=== PATIENT | female | born 1945 | race Caucasian/White ===

== ENCOUNTER 2020-07-01 15:04 | Inpatient (IN) | payer MEDICARE ==
[~2020-07-01] VITALS: Ht 160 cm; Wt 110.7 kg
--- NOTE | ~2020-07-01 | HEMODYNAMI ---
PATIENT:PATT TOVAR MEDICAL RECORD: [id number] : 47 LOCATION:D.MS [place] ADMISSION DATE: 07/01/20 Generatedon:07/01/202016:23 Patient name: PATT TOVAR Patient #: [id number] SSN: : 1945 Date of study: Page: Of Hemodynamic Procedure Report Patient Data Patient Demographics First Name: PATT Gender: Female Last Name: GUY : 1945 Patient #: [id number] Age: 75 year(s) Race: Unknown Additional ID: [id number] Admission Admission Data Admission Date: 07/01/2020 Admission Time: 15:04 Room #: D.2223 Procedure Procedure Types Cath Procedure Peripheral Cath Diagnostic Procedure Microbiology Analyst Peripheral Procedures IVC Filter Procedure Description Procedure Staff Name Function Norma Billings MD Performing Physician Aicha Dyer RT Monitor Kashmir CISNEROS RN Nurse WELLINGTON TERRAZAS RT Scrub Hemodynamics Rest Pre Cath Intra NCS Post Cath Procedure Log Time Note 16:16:28 Use device set IR Diagnostic 16:16:29 Bag Decanter () opened to sterile field. 16:16:30 Sterile Angiographic Pack opened to sterile field. 16:16:30 Tegaderm 4 x 4 (1626W) opened to sterile field. 16:16:42 MICROPUNCTURE 4FR Cook ([id number]) opened to sterile field. 16:16:43 DOC .035 wire ([id number]) opened to sterile field. Device Usage Item Name Manufacture Quantity Catalog Hospital Part Current Minima l Lot# / Number Charge Number Stock Stock Serial# Code Bag Decanter Microtek 1 [id number] [id number] 5 () Medical Inc. Sterile Cardinal 1 [id number] 756360 625415 5 Angiographic Health Pack Tegaderm 4 x 3M 1 1626W 609611 886350 974373 5 4 (1626W) MICROPUNCTURE Salient Pharmaceuticals Medical 1 [id number] 112197 675828 991091 5 4FR Cook ([id number]) DOC .035 [facility] 1 [id number] 995825 360050 5 ([id number]) Signature Audit Delta Stage Time Signature Unsigned Intra-Procedure 07/01/2020 WELLINGTON TERRAZAS RT 4:23:18 PM (R) [id number] [place] [address]
--- NOTE | ~2020-07-01 | EC ---
PATIENT:PATT TOVAR DATE OF SERVICE: 07/01/20 SEX: F MEDICAL RECORD: [id number] DATE OF : [birth year] LOCATION:D.MS [facility] AGE OF PATIENT: 75 ADMISSION DATE: 07/01/20 REFERRING PHYSICIAN: INTERPRETING PHYSICIAN: ADOLFO VILLAR MD ECHOCARDIOGRAM REPORT ECHO CHARGES 4 ECHO COMPLETE Date: 07/03/20 CLINICAL DIAGNOSIS: PTE ECHOCARDIOGRAPHIC MEASUREMENTS (adult normal given) AC root (d.<3.7cm) 3.1 cm LV Septum d (<1.2 cm> 1.8 cm Valve Excursion 1.6 cm LV Septum (systole) 2.2 cm Left Atria (s.<4.0cm> 4.2 cm LVPW d(<1.2cm) 1.3 cm RV (d.<2.3cm) 3.1 cm LVPW (sytole) 1.4 cm LV diastole(<5.6CM) 4.7 cm MV E-F(>70mm/sec) cm LV systole 3.3 cm LVOT Diameter 1.6 cm MV exc.(>10mm) cm Est.ejection fraction (50-75%) % DOPPLER: LVIT cm/sec A 126 cm/sec E 91 cm/sec LA cm/sec RVSP 17.7 mmHg LVOT 155 cm/sec AOP1/2T m/s Asc. Ao 189 cm/sec RVOT 60 cm/sec RA cm/sec PA 66 cm/sec AV Gradient Peak 14.3 mmHg AV Mean 8.6 mmHg AV Area 1.5 cm MV Gradient Peak 6.6 mmHg MV Mean 2.6 mmHg MV Area cm COMMENTS: Manufacturing Scheduler: Madina OLMSTEAD Body Worker: Natali Villar TAPE# PACS Pericardial Effusion N DATE OF SERVICE: PROCEDURE: Transthoracic echocardiogram. FINDINGS: 1. The left ventricle shows moderate concentric left ventricular hypertrophy, ejection fraction 60%. 2. Left atrium is moderately dilated. 3. The aortic valve is sclerotic without stenosis. 4. Mitral valve has trace mitral regurgitation with mitral annular ECHOCARDIOGRAM REPORT [id number] PATT TOVAR calcification. 5. Tricuspid valve normal shape, structure, and function. 6. The right ventricle has more right ventricular hypertrophy with mild enlargement. 7. Right atrium is normal size, shape, structure, and function. 8. There is diastolic dysfunction. 9. Pulmonic valve is normal. 10. There is mild pericardial effusion. TRANSINT:[id number] Voice Confirmation ID: [id number] DOCUMENT ID: [id number] ADOLFO VILLAR MD CC: [id number] DICTATION DATE: 07/04/20 1103 HOSPITAL CNA: 07/04/20 1555 ADM IN [facility] [address] [place] [address]
--- NOTE | ~2020-07-01 | HEMODYNAMI ---
PATIENT:PATT TOVAR MEDICAL RECORD: [id number] : 47 LOCATION:D.MS [facility]2223 ADMISSION DATE: 07/01/20 Generatedon:07/02/202014:03 Patient name: PATT TOVAR Patient #: [id number] SSN: : 1945 Date of study: 07/02/2020 Page: Of Hemodynamic Procedure Report Patient Data Patient Demographics Procedure consent was obtained First Name: PATT Gender: Female Last Name: GUY : 1945 Patient #: [id number] Age: 75 year(s) Race: Unknown Additional ID: [id number] Contact details [address]: [address] [place] [address] State: [place] City: [place] Zip code: [address] Past Medical History Allergies Allergen Reaction Date Comments Reported Penicillins 07/02/2020 Sulfa drugs 07/02/2020 Admission Admission Data Admission Date: 07/01/2020 Admission Time: 15:04 Room #: D.2223 Height (in.): 63 BSA: 2.1 (m2) Height (cm.): 160.02 BMI: 43.22 (kg/m2) Weight (lbs.): 244 Weight (kg.): 110.68 Procedure Procedure Types Cath Procedure Peripheral Cath Diagnostic Procedure Welder Helper Peripheral Procedures Venography Extremity Left Lower Ext. Venagram Procedure Description Procedure Date Procedure Date: 07/02/2020 Procedure Start Time: 12:38 Procedure Staff Name Function Girish Barboza MD Performing Physician Aicha Dyer RT Buttonholer Kashmir CISNEROS RN Nurse WELLINGTON TERRAZAS RT Scrub Procedure Data Cath Procedure Fluoroscopy Diagnostic fluoroscopy Total fluoroscopy Time: 8.1 time: 8.1 min min Diagnostic fluoroscopy Total fluoroscopy dose: 805 dose: 805 mGy mGy Contrast Material Contrast Material Type Amount (ml) Isovue 300 90 Procedure Medications Medication Administration Route Dosage Benadryl I.V. 50 mg Fentanyl I.V. 50 mcg Versed I.V. 1 mg Fentanyl I.V. 25 mcg Versed I.V. 0.5 mg Fentanyl I.V. 25 mcg Versed I.V. 0.5 mg Heparin Bolus I.V. 5000 units Fentanyl I.V. 25 mcg Versed I.V. 0.5 mg Versed I.V. 0.5 mg Fentanyl I.V. 25 mcg Fentanyl I.V. 25 mcg Versed I.V. 0.5 mg Hemodynamics Rest BSA: 2.1 (m2) O2 Consumption: Estimated: 214 (ml/min) O2 Consumption indexed: Es timated:101.9 (ml/min/m) Heart Rate: 98 (bpm) Snapshots Pre Cath Intra NCS Post Cath Vital Signs Time Heart Resp SPO2 etCO2 NIBP (mmHg) Rhythm Pain Sedation Rate (ipm) (%) (mmHg) Status Level (bpm) 12:12:50 97 20 100 17.2 114/73(86) NSR 0 (11) 9(A) , No pain 12:17:00 97 21 100 14.9 106/65(82) NSR 0 (11) 9(A) , No pain 12:21:08 96 20 100 12.7 105/67(86) NSR 0 (11) 9(A) , No pain 12:25:13 96 16 100 12.7 104/69(87) NSR 0 (11) 9(A) , No pain 12:30:04 95 22 100 20.9 123/79(91) NSR 0 (11) 9(A) , No pain 12:34:14 95 15 100 10.4 124/78(98) NSR 0 (11) 9(A) , No pain 12:38:28 96 19 100 11.2 132/75(95) NSR 0 (11) 9(A) , No pain 12:42:38 97 14 100 2.9 107/67(91) NSR 0 (11) 8(A) , No pain 12:46:46 99 14 99 4.4 110/72(84) NSR 0 (11) 8(A) , No pain 12:50:54 99 15 98 1.4 114/71(87) NSR 0 (11) 8(A) , No pain 12:55:03 96 14 98 2.9 109/70(81) NSR 0 (11) 8(A) , No pain 12:59:11 96 18 98 5.2 117/73(95) NSR 0 (11) 9(A) , No pain 13:03:23 96 13 99 8.9 108/75(89) NSR 0 (11) 8(A) , No pain 13:07:35 94 14 98 22.4 112/66(86) NSR 0 (11) 8(A) , No pain 13:11:45 96 24 96 16.4 115/74(91) NSR 0 (11) 9(A) , No pain 13:16:01 95 13 96 29.1 123/63(100) NSR 0 (11) 9(A) , No pain 13:20:15 97 17 96 29.1 124/85(99) NSR 0 (11) 8(A) , No pain 13:24:27 94 13 92 14.9 138/84(108) NSR 0 (11) 8(A) , No pain 13:28:37 94 20 93 29.9 140/90(109) NSR 0 (11) 8(A) , No pain 13:32:57 94 12 95 23.1 120/83(91) NSR 0 (11) 8(A) , No pain 13:37:07 95 15 96 31.4 135/90(113) NSR 0 (11) 8(A) , No pain 13:41:21 96 16 94 28.4 137/88(106) NSR 0 (11) 8(A) , No pain 13:45:37 98 16 94 16.4 100/73(90) NSR 0 (11) 8(A) , No pain 13:49:41 96 20 96 18.7 118/78(92) NSR 0 (11) 8(A) , No pain 13:53:50 95 33 96 29.1 129/77(101) NSR 0 (11) 8(A) , No pain 13:58:05 92 11 96 26.9 124/77(110) NSR 0 (11) 8(A) , No pain 14:02:10 98 14 32.9 134/88(103) NSR 0 (11) 8(A) , No pain Medications Time Medication Route Dose Verified Delivered Reason Notes Effe ctiveness by by 12:28:25 Benadryl I.V. 50 mg Girish Minner used for Tamra vora MD, RN 12:39:00 Fentanyl I.V. 50 Girish Minner for sedation mcg Tamra CISNEROS MD, RN 12:39:12 Versed I.V. 1 mg Girish Minner for sedation Tamra CISNEROS MD, RN 12:47:42 Fentanyl I.V. 25 Girish Minner for sedation mcg Tamra CISNEROS MD, RN 12:47:48 Versed I.V. 0.5 Girish Minner for sedation mg Tamra CISNEROS MD, RN 13:02:03 Fentanyl I.V. 25 Girish Minner for sedation mcg Tamra CISNEROS MD, RN 13:02:12 Versed I.V. 0.5 Girish Minner for sedation mg Tamra CISNEROS MD, RN 13:06:10 Heparin I.V. 5000 Girish Minner for Bolus units Tamra verde MD, RN 13:10:04 Fentanyl I.V. 25 Girish Minner for sedation mcg Tamra CISNEROS MD, RN 13:10:52 Versed I.V. 0.5 Girish Minner for sedation mg Tamra CISNEROS MD, RN 13:19:57 Fentanyl I.V. 25 Girish Minner for sedation mcg Tamra CISNEROS MD, RN 13:20:02 Versed I.V. 0.5 Girish Minner for sedation mg Tamra CISNEROS MD, RN 13:45:53 Fentanyl I.V. 25 Girish Minner for sedation mcg Tamra CISNEROS MD, RN 13:45:59 Versed I.V. 0.5 Girish Minner for sedation mg Tamra CISNEROS MD early years teacher Log Time Note 11:31:31 Patient Height : 63 inches 11:31:35 Patient Weight : 244 lbs 11:31:59 Use device set IR Diagnostic 12:09:48 BENTSON 145cm wire ([id number]) opened to sterile field. 12:09:49 Micropuncture VSI 4FR kit opened to sterile field. 12:09:50 Tegaderm 4 x 4 (1626W) opened to sterile field. 12:09:53 Sterile Angiographic Pack opened to sterile field. 12:09:53 Bag Decanter (2002S) opened to sterile field. 12:10:05 Time tracking: Regular hours (M-F 7:00 - 5:00) 12:10:22 Plan of Care:Hemodynamics will remain stable., Cardiac rhythm will remain stable., Comfort level will be maintained., Respiratory function will remain adequate., Patient/ family verbilizes understanding of procedure., Procedure tolerated without complication., Recovers from procedure without complications.. 12:11:34 Patient received from Med/Surg to IR Alert and oriented. Tansferred to table in Prone position. 12:11:42 Signed procedure consent form obtained from guardian. 12:11:46 ECG and BP/O2 sat monitors applied to patient. 12:11:47 Vital chart was started 12:11:49 Baseline sample Acquired. 12:11:50 Full Disclosure recording started 12:11:51 - 12:11:55 H&P Date Dictated: 07/02/2020 Within 30 days and on chart.. 12:11:57 Pre-procedure instructions explained to patient. 12:11:58 Pre-op teaching completed and patient verbalized understanding. 12:12:01 Family unavailable. 12:12:04 Patient NPO since Midnight. 12:12:17 Patient allergic to Penicillins 12:13:07 Patient allergic to Sulfa drugs 12:13:13 Is the patient allergic to Iodine/contrast media? No. 12:13:15 Is patient on blood thinner?Yes 12:13:21 ACC The patient was administered the following blood thiners within the last 24 hours: ACCHeparin 12:13:43 Patient diabetic? Yes. 12:13:47 If diabetic: On Metformin? Yes 12:14:14 If on Metformin: Last Dose? 06/30/2020 12:14:17 - 12:14:20 ----Pre-sedation anethsthesia assessment.---- 12:14:23 Previous problem with sedation/anesthesia? No ? 12:14:29 Snore? Yes 12:14:31 Sleep apnea? No 12:14:35 Deviated septum? No 12:14:39 Opens mouth fully? Yes 12:14:41 Sticks out tongue? Yes 12:14:47 Airway obstruction? No ? 12:14:51 Dentures? No ? 12:15:06 Popliteal region area was prepped with chlora-prep and draped in steril e fashion 12:15:19 Fire Safety Assessment: A--An alcohol-based skin anteseptic being used preoperatively., C--Open oxygen or nitrous oxide is being used. 12:22:57 2) 60-89 Mildly reduced kidney function, and other findings (as for stage 1) point to kidney disease. 12:23:33 Maximum allowable contrast dose (3.7 X eGFR X 0.75)180 ml. 12:28:25 Benadryl 50 mg I.V. was administered by Kashmir CISNEROS RN; used for procedure; Verbal order read back and verified. 12:33:05 Cordis 5Fr BRITE TIP 11cm sheath opened to sterile field. 12:37:32 Physician arrived 12:37:33 --------ALL STOP TIME OUT------ 12:37:34 Final Timeout: patient, procedure, and site verified with staff and physician. All members of the team are in agreement. 12:38:06 Procedure started. 12:38:15 Local anesthetic to left popliteal vein with Lidocaine 1% by Girish Barboza MD.INITIAL ACCESS ONLY 12:39:00 Fentanyl 50 mcg I.V. was administered by Kashmir CISNEROS RN; for sedation; Verbal order read back and verified. 12:39:12 Versed 1 mg I.V. was administered by Kashmir CISNEROS RN; for sedation; Verbal order read back and verified. 12:47:42 Fentanyl 25 mcg I.V. was administered by Kashmir CISNEROS RN; for sedation; Verbal order read back and verified. 12:47:48 Versed 0.5 mg I.V. was administered by Kashmir CISNEROS RN; for sedation; Verbal order read back and verified. 13:02:03 Fentanyl 25 mcg I.V. was administered by Kashmir CISNEROS RN; for sedation; Verbal order read back and verified. 13:02:12 Versed 0.5 mg I.V. was administered by Kashmir CISNEROS RN; for sedation; Verbal order read back and verified. 13:06:10 Heparin Bolus 5000 units I.V. was administered by Kashmir CISNEROS RN; fo r anticoagulation; Verbal order read back and verified. 13:08:37 CXI Catheter 90cm (H18637) opened to sterile field. 13:08:47 ROADRUNNER .035 145 glide wire (G60248) opened to sterile field. 13:10:04 Fentanyl 25 mcg I.V. was administered by Kashmir CISNEROS RN; for sedation; Verbal order read back and verified. 13:10:52 Versed 0.5 mg I.V. was administered by Kashmir CISNEROS RN; for sedation; Verbal order read back and verified. 13:19:57 Fentanyl 25 mcg I.V. was administered by Kashmir CISNEROS RN; for sedation; Verbal order read back and verified. 13:20:02 Versed 0.5 mg I.V. was administered by Kashmir CISNEROS RN; for sedation; Verbal order read back and verified. 13:30:52 INFLATOR BasixTOUCH (BJ2811) opened to sterile field. 13:31:[address] Tarik (333919) opened to sterile field. 13:31:32 AMPLATZ Super stiff Straight 260cm wire ([id number]) opened to sterile field. 13:31:48 Zelante 8Fr Angiojet catheter opened to sterile field. 13:32:15 Inflate balloon Inflation number: 1 A Evercross 12 x 40 x 135 ([id number]) was prepped and advanced across the Undefined1 , then inflated . 13:42:32 Inflate balloon Inflation number: 1 A ATLAS 14 x 4 x 75CM balloon ([id number]) was prepped and advanced across the Undefined2 , then inflated. 13:45:53 Fentanyl 25 mcg I.V. was administered by Kashmir CISNEROS RN; for sedation; Verbal order read back and verified. 13:45:59 Versed 0.5 mg I.V. was administered by Kashmir CISNEROS RN; for sedation; Verbal order read back and verified. 13:54:05 Procedure ended.(Physican Out) 13:55:27 Fluoroscopy time 08.10 minutes. 13:55:31 Fluoroscopy dose: 805 mGy 13:55:31 Flurop Dose total: 805 13:55:36 Contrast amount:Isovue 300 90ml. 13:56:00 MYNX CUSTOMER FACILITIES SUPERVISOR 6FR/7FR ([id number]) opened to sterile field. 13:56:13 Procedure and supply charges have been captured, reviewed, submitted an d are correct. 13:58:23 Report given to Med/Surg. 14:03:37 Vital chart was stopped Intervention Summary Intervention Notes Time ActionType Lesion and Equipment Used Action# Pressure Duration Attributes 13:32:15 Inflate Undefined1 Evercross 12 x 1 0 00:00 balloon 40 x 135 ([id number]) 13:42:32 Inflate Undefined2 ATLAS 14 x 4 x 1 0 00:00 balloon 75CM balloon ([id number]) Device Usage Item Name Manufacture Quantity Catalog Hospital Part Current Min imal Lot# / Number Charge Number Stock Stock Serial# Code SANA 145cm Cook Medical 1 [id number] [id number] 5 wire ([id number]) Micropuncture VSI VASCULAR 1 7266V 580798 921066 5 VSI 4FR kit SOLUTIONS Tegaderm 4 x 4 3M 1 1626W 893393 881882 557249 5 (1626W) Sterile Cardinal 1 [id number] 749683 930766 5 Angiographic Health Pack Bag Decanter Microtek 1 2001S 889756 58173 604078 5 (2001S) Medical Inc. Cordis 5Fr Cardinal 1 [id number] 107215 261372 5 BRITE TIP 11cm Health sheath CXI Catheter Cook Medical 1 B25126 344484 051108 350804 5 90cm (A86463) ROADRUNNER .035 Cook Medical 1 R59833 057372 758788 645099 5 145 glide wire (D65046) INFLATOR Merit 1 SX4352 978881 320939 841008 5 [id number] PriceAdvice (QI4027) SHEATH 8FR [facility] Tarik 1 655220 953198 089134 365239 5 Tarik (173305) AMPLATZ Super Erwin 1 [id number] 673348 81905 535890 5 stiff Straight Scientific 260cm wire ([id number]) Zelante 8Fr Erwin 1 315217-451 176698 414737 552246 5 Angiojet Scientific catheter Evercross 12 x Medtronic 1 [id number] 067436 650611 127279 5 40 x 135 ([id number]) ATLAS 14 x 4 x Bard 1 LG49114 634292 323464 507243 5 75CM balloon ([id number]) MYNX CUSTOMER FACILITIES SUPERVISOR Access 1 [id number] 713716 168569 5 6FR/7FR Closure (RB7681) Signature Audit [place] Stage Time Signature Unsigned Intra-Procedure 07/02/2020 Aicha Dyer 2:03:31 PM RT(R) [facility] [address] [place] [address]
[2020-07-01 15:36] LABS: BASOPHILS 0.1 % (0-2); EOSINOPHILS 0.6 % (0-7); HEMATOCRIT 32.4 % (36.0-48.0); HEMOGLOBIN 9.8 g/dL (12-16); IMMATURE GRANULOCYTES 0.4 % (0-5); LYMPHOCYTES 7.9 % (15-50); MCH 23.9 pg (26.0-34.0); MCHC 30.2 g/dL (31.0-37.0); MEAN PLATELET VOLUME 9.5 fL (7.4-10.4); MONOCYTES 6.6 % (2-11); NEUTROPHILS 84.4 % (40-80); PLATELET COUNT 328 10x3/uL (130-400); RDW 18.3 % (11.5-14.5); WBC 13.5 10x3/uL (4.8-10.8)
[2020-07-01 15:50] LABS: INR 2.18 (0.85-1.17); PROTIME 23.9 SECONDS (11.6-15.0)
[2020-07-01 15:51] LABS: APTT 35.5 SECONDS (22.8-39.4)
[2020-07-01 15:59] LABS: ANION GAP 10.5 mmol/L (8-16); CALCIUM 8.8 mg/dL (8.5-10.1); CARBON DIOXIDE 24.9 mmol/L (21.0-32.0); CREATININE - SERUM 1.1 mg/dL (0.6-1.3); POTASSIUM - SERUM 4.4 mmol/L (3.5-5.1)
[2020-07-01 16:05] LABS: ALBUMIN 2.2 g/dL (3.4-5.0); BILIRUBIN - TOTAL 0.42 mg/dL (0.2-1.3)
[2020-07-01 17:04] VITALS: BP 108/58; BMI 43.3
--- NOTE | 2020-07-01 17:26 | NUR ---
I have reviewed this patient and I concur with the Shift Assessment completed by the Licensed Practical Nurse today this shift.
--- NOTE | 2020-07-01 19:30 | NUR ---
LEFT PEDAL PULSE PRESENT WITH DOPPLER
[2020-07-01 20:00] VITALS: BP 128/57
--- NOTE | 2020-07-01 20:00 | NUR ---
PT LYING IN BED WITHOUT DISTRESS, ORIENTED TO SELF ONLY. IV RIGHT UPPER ARM INFUSING HEPARIN DRIP AT 13ML/HR, PTT REDRAW AT 0000. LEFT LEG RED AND SWOLLEN. BLISTERS TO LEFT FOOT. LARGE BLISTER ON TOP. SMALL BLISTERS AROUND ANKLE. PT INCONTINENT OF URINE. DENIES NEEDS. DOES NOT ANSWER MANY QUESTIONS, JUST STARES BLANKLY. CL IN REACH, WILL CTM
--- NOTE | 2020-07-01 22:00 | NUR ---
DAMIR MEDINA CAN CLOSING MACHINE TENDER AT BEDSIDE ASSESSING PT LEFT LEG AND BLISTERS
--- NOTE | 2020-07-01 23:00 | NUR ---
PT GIVEN HIBICLENS BATH, LINENS CHANGED. 16F BHATIA CATH PLACED, 10ML STERILE WATER INTO BALLOON. STAT LOCK PLACED TO RIGHT THIGH
[2020-07-02] VITALS (13 sets, daily range): BP systolic 97–166; BP diastolic 46–85; Ht 160 cm; Wt 110.7 kg
--- NOTE | 2020-07-02 05:00 | NUR ---
PT YELLING OUT HELP. ENTERED PT ROOM AND ASKED WHAT SHE NEEDED, PT STATES SHE IS HURTING. WHEN ASKED IF IT IS HER LEG HURTING, SHE STATES YES. GAVE MORPHINE ORDERED. PT THEN BEGAN SAYING SHE FELT SICK TO HER STOMACH. GAVE ZOFRAN. PT WENT BACK TO SLEEP SOON AFTER. WILL CTM
[2020-07-02 06:57] LABS: ALBUMIN 2.3 g/dL (3.4-5.0); ANION GAP 13.9 mmol/L (8-16); BILIRUBIN - TOTAL 0.6 mg/dL (0.2-1.3); CALCIUM 9.6 mg/dL (8.5-10.1); CARBON DIOXIDE 24.5 mmol/L (21.0-32.0); CREATININE - SERUM 0.9 mg/dL (0.6-1.3); POTASSIUM - SERUM 4.4 mmol/L (3.5-5.1); PROTEIN - SERUM 6.9 g/dL (6.4-8.2)
[2020-07-02 07:10] LABS: PROTIME 19.5 SECONDS (11.6-15.0)
[2020-07-02 07:11] LABS: APTT 76.5 SECONDS (22.8-39.4)
[2020-07-02 07:16] LABS: INR 1.67 (0.85-1.17)
[2020-07-02 07:50] LABS: BASOPHILS 0.1 % (0-2); HEMATOCRIT 32.3 % (36.0-48.0); HEMOGLOBIN 9.5 g/dL (12-16); IMMATURE GRANULOCYTES 0.4 % (0-5); LYMPHOCYTES 9.7 % (15-50); MCH 23.8 pg (26.0-34.0); MCHC 29.4 g/dL (31.0-37.0); MCV 80.8 fL (80.0-100.0); MEAN PLATELET VOLUME 10.2 fL (7.4-10.4); MONOCYTES 7.8 % (2-11); PLATELET COUNT 393 10x3/uL (130-400); RDW 18.3 % (11.5-14.5); WBC 14.8 10x3/uL (4.8-10.8)
--- NOTE | 2020-07-02 09:42 | NUR ---
ASSESSMENT PER FLOW SHEET. PATIENT IS WITHOUT DISTRESS. DOES NOT SPEAK,BUT A FEW WORDS. SHE ALSO HAS A BLANK LOOKING GAZE WHEN SPOKEN TO.NPO FOR PROCEDURE.
[2020-07-02 12:22] LABS: LDH 849 U/L (81-234)
--- NOTE | 2020-07-02 15:25 | NUR ---
PROCEDURE COMPLETED AND PATIENT HAS BEEN BACK IN ROOM. SHE IS WITHOUT SIGNS OF DISTRESS. SITE FROM VENOGRAM POST LEFT KNEE WITHOUT SWELLING OR BLEEDING.VSS SEE GRAPHICS. PULSES HEARD VIA DOPPLER TO LLE. MONITOR
--- NOTE | 2020-07-02 18:27 | NUR ---
STILL WITHOUT NEEDS. AWAKENS INT.RLE STILL WITHOUT BLEEDING OR HEMATOMA AT PROCEDURE SITE. PULSES VIA DOPPLER
--- NOTE | 2020-07-02 20:00 | NUR ---
PT LYING IN BED SLEEPING WITHOUT DISTRESS, AWAKENS TO VERBAL STIMULI. ORIENTED TO SELF ONLY. DENIES NEEDS AT THIS TIME. BHATIA IN PLACE. 02 2L/NC. BANG ON. CL IN REACH, WILL CTM
[2020-07-03] VITALS: BP 91/42
--- NOTE | 2020-07-03 01:00 | NUR ---
PT HIT CALL LIGHT AND CALLED OUT OF HELP. ENTERED PT ROOM AND SHE WAS ASKING FOR FOOD AND WATER. GAVE PT A FEW SIPS OF WATER. LEFT ROOM TO SEE ABOUT HER NPO STATUS AND BY THE TIME I CAME BACK TO ROOM SHE WAS ASLEEP. WILL RIKKIM
[2020-07-03 04:00] VITALS: BP 104/47
[2020-07-03 07:32] LABS: HEMATOCRIT 29.2 % (36.0-48.0); HEMOGLOBIN 8.5 g/dL (12-16); MCH 23.9 pg (26.0-34.0); MCHC 29.1 g/dL (31.0-37.0); MCV 82.3 fL (80.0-100.0); MEAN PLATELET VOLUME 9.2 fL (7.4-10.4); PLATELET COUNT 335 10x3/uL (130-400); RBC 3.55 10x6/uL (4.00-5.40); RDW 18.6 % (11.5-14.5); WBC 11.9 10x3/uL (4.8-10.8)
[2020-07-03 08:03] LABS: APTT 61.4 SECONDS (22.8-39.4); PROTIME 15.8 SECONDS (11.6-15.0)
[2020-07-03 08:12] LABS: HAPTOGLOBIN 410 mg/dL (42-346)
[2020-07-03 08:15] VITALS: BP 99/23
--- NOTE | 2020-07-03 08:24 | NUR ---
RSTING IN BED, NO DISTRESS NOTED, EYES CLOSED, HEPARIN INFUSING AT 13, CONT TO MONITOR
[2020-07-03 08:36] LABS: INR 1.27 (0.85-1.17)
[2020-07-03 09:02] LABS: EOSINOPHILS 1 % (0-7); LYMPHOCYTES 5 % (15-50); MONOCYTES 2 % (2-11); NEUTROPHILS 92 % (40-80); PLATELET ESTIMATE NORMAL
[2020-07-03 09:16] LABS: ANION GAP 10.6 mmol/L (8-16); BILIRUBIN - TOTAL 0.72 mg/dL (0.2-1.3); CALCIUM 8.9 mg/dL (8.5-10.1); CARBON DIOXIDE 26.5 mmol/L (21.0-32.0); CREATININE - SERUM 0.8 mg/dL (0.6-1.3); POTASSIUM - SERUM 4.1 mmol/L (3.5-5.1)
[2020-07-03 13:47] VITALS: BP 98/33
[2020-07-03 14:09] LABS: ALPHA FETOPROTEIN -(TUMOR MRK) 1.9 ng/mL (0.0-8.3)
[2020-07-03 17:37] VITALS: BP 104/41
[2020-07-03 20:00] VITALS: BP 99/45
[2020-07-04 00:10] VITALS: BP 100/51
[2020-07-04 01:21] LABS: BASOPHILS 0.2 % (0-2); EOSINOPHILS 2.7 % (0-7); HEMATOCRIT 27.5 % (36.0-48.0); HEMOGLOBIN 7.9 g/dL (12-16); IMMATURE GRANULOCYTES 1.7 % (0-5); LYMPHOCYTES 11.1 % (15-50); MCH 23.8 pg (26.0-34.0); MCHC 28.7 g/dL (31.0-37.0); MCV 82.8 fL (80.0-100.0); MEAN PLATELET VOLUME 9.5 fL (7.4-10.4); MONOCYTES 8.1 % (2-11); NEUTROPHILS 76.2 % (40-80); PLATELET COUNT 349 10x3/uL (130-400); RBC 3.32 10x6/uL (4.00-5.40); RDW 18.9 % (11.5-14.5); WBC 11.7 10x3/uL (4.8-10.8)
[2020-07-04 01:23] LABS: INR 1.17 (0.85-1.17); PROTIME 14.9 SECONDS (11.6-15.0)
[2020-07-04 01:27] LABS: ALBUMIN 1.9 g/dL (3.4-5.0); ANION GAP 8.6 mmol/L (8-16); BILIRUBIN - TOTAL 0.45 mg/dL (0.2-1.3); CALCIUM 8.2 mg/dL (8.5-10.1); CARBON DIOXIDE 29.1 mmol/L (21.0-32.0); CREATININE - SERUM 0.8 mg/dL (0.6-1.3); POTASSIUM - SERUM 3.7 mmol/L (3.5-5.1); PROTEIN - SERUM 5.7 g/dL (6.4-8.2)
[2020-07-04 01:45] LABS: APTT 62.1 SECONDS (22.8-39.4)
[2020-07-04 04:30] VITALS: BP 103/50
--- NOTE | 2020-07-04 08:48 | NUR ---
ASSESSMENT PER FLOW SHEET. PATIENT IS WITHOUT DISTRESS.AWAKE AND EATING THIS AM 100% OF BREAKFAST,FEEDING SELF.REQUEST FOR BLACK COFFEE.FALL PREVENTION IN PLACE WITH BANG
[2020-07-04 09:49] VITALS: BP 97/43
[2020-07-04 12:15] VITALS: BP 114/50
--- NOTE | 2020-07-04 12:30 | NUR ---
WAITING ON LUNCH. PATIENT IS WITHOUT DISTRESS. STILL WAITING ON LABS FOR HEPARIN DRIP.
--- NOTE | 2020-07-04 19:00 | NUR ---
BEDSIDE REPORT RECEIVED AND CARE OF PT ASSUMED. PT LYING ON RIGHT SIDE WITH EYES CLOSED. IV TO RIGHT FA PATENT WITH HEPARIN INFUSING AT 18 ML/HR. BHATIA CATHETER DRAINING TO GRAVITY WITH YELLOW URINE IN COLLECTION BAG. O2 IN USE VIA NC AT 4L. LEFT FOOT WITH REDNESS AND LARGE BLISTERS. WILL MONITOR FOR NEEDS.
--- NOTE | 2020-07-04 19:46 | NUR ---
PT REQUESTING PAIN MED...MORPHINE FELL OFF JAN. CALLED AND RECEIVED ORDER FOR NORCO 5 PO Q6PRN.
--- NOTE | 2020-07-04 20:15 | NUR ---
HS MEDICATIONS GIVEN TO INCLUDE NORCO PO PER REQUEST FOR PAIN IN LEG. FSBS 144 THIS CHECK REQUIRING NO COVERAGE PER SLIDING SCALE. WILL CONTINUE TO MONITOR FOR NEEDS.
[2020-07-04 20:26] VITALS: BP 106/44
[2020-07-05 00:16] VITALS: BP 130/61
[2020-07-05 03:06] LABS: PROTEIN S - FREE 92 % (57-157); PROTEIN S - FREE 93 % (57-157); PROTEIN S - FUNCTIONAL 45 % (63-140); PROTEIN S - TOTAL 111 % (60-150); PROTEIN S - TOTAL 170 % (60-150)
[2020-07-05 04:30] VITALS: BP 114/44
[2020-07-05 05:23] LABS: INR 1.08 (0.85-1.17)
[2020-07-05 05:31] LABS: APTT 64.7 SECONDS (22.8-39.4)
[2020-07-05 05:34] LABS: HEMATOCRIT 29.8 % (36.0-48.0); HEMOGLOBIN 8.7 g/dL (12-16); MCH 24.4 pg (26.0-34.0); MCHC 29.2 g/dL (31.0-37.0); MCV 83.5 fL (80.0-100.0); MEAN PLATELET VOLUME 9.6 fL (7.4-10.4); PLATELET COUNT 397 10x3/uL (130-400); RBC 3.57 10x6/uL (4.00-5.40); RDW 19.5 % (11.5-14.5); WBC 11.9 10x3/uL (4.8-10.8)
--- NOTE | 2020-07-05 07:10 | NUR ---
REC'D IN BED AWAKE AND ALERT. RESP EVEN AND UNLABORED WITH NO DISTRESS NOTED CAN EXPRESS NEEDS AND WANTS. NO C/O VOICED. ASSESSMENT COMPLETED. C/L IN REACH AT BEDSIDE.
[2020-07-05 08:51] LABS: ALBUMIN 2.1 g/dL (3.4-5.0); ANION GAP 13.6 mmol/L (8-16); BILIRUBIN - TOTAL 0.33 mg/dL (0.2-1.3); CALCIUM 8.2 mg/dL (8.5-10.1); CARBON DIOXIDE 27.6 mmol/L (21.0-32.0); CREATININE - SERUM 0.8 mg/dL (0.6-1.3); POTASSIUM - SERUM 4.2 mmol/L (3.5-5.1); PROTEIN - SERUM 5.7 g/dL (6.4-8.2)
[2020-07-05 08:54] VITALS: BP 134/71
--- NOTE | 2020-07-05 09:59 | NUR ---
I have reviewed this patient and I concur with the Shift Assessment completed by the Licensed Practical Nurse today this shift.
[2020-07-05 10:33] LABS: LYMPHOCYTES 12 % (15-50); MONOCYTES 12 % (2-11); NEUTROPHILS 73 % (40-80); PLATELET ESTIMATE INCREASED
[2020-07-05 10:34] LABS: ANISOCYTOSIS OCC; HYPOCHROMASIA OCC; ROULEAUX OCC
[2020-07-05 13:05] VITALS: BP 128/55
--- NOTE | 2020-07-05 14:17 | NUR ---
Nutrition follow-up: RDN visited pt during breakfast. Pt reports good appetite with po intake 100% of last 4 meals. Pt denies chewing or swallowing issues and reports filling out his menus and enjoying the food. Labs reviewed WT: 243# RDN following.
[2020-07-05 15:11] LABS: ACLA - IGG AB <9 GPL U/mL (0-14); ACLA - IGM AB <9 MPL U/mL (0-12); BETA-2 MICROGLOBULIN 3.2 mg/L (0.6-2.4)
[2020-07-05 17:37] VITALS: BP 135/59
[2020-07-05 22:03] VITALS: BP 100/57
--- NOTE | 2020-07-05 22:45 | NUR ---
INCREASED HEPARIN DRIP PER PROTOCOL FROM 17 UNITS TO 18 UNITS.
[2020-07-06] VITALS: BP 128/58
[2020-07-06 04:00] VITALS: BP 127/63
[2020-07-06 06:22] LABS: ALBUMIN 2.1 g/dL (3.4-5.0); ANION GAP 9.6 mmol/L (8-16); BILIRUBIN - TOTAL 0.33 mg/dL (0.2-1.3); CALCIUM 7.8 mg/dL (8.5-10.1); CARBON DIOXIDE 30.4 mmol/L (21.0-32.0); CREATININE - SERUM 0.8 mg/dL (0.6-1.3); PROTEIN - SERUM 5.6 g/dL (6.4-8.2)
[2020-07-06 06:24] LABS: INR 1.06 (0.85-1.17); PROTIME 13.7 SECONDS (11.6-15.0)
[2020-07-06 06:28] LABS: APTT 30.9 SECONDS (22.8-39.4)
[2020-07-06 07:31] LABS: BASOPHILS 0.1 % (0-2); EOSINOPHILS 2.5 % (0-7); HEMATOCRIT 30.2 % (36.0-48.0); HEMOGLOBIN 8.7 g/dL (12-16); IMMATURE GRANULOCYTES 1.9 % (0-5); LYMPHOCYTES 10.4 % (15-50); MCHC 28.8 g/dL (31.0-37.0); MCV 83.4 fL (80.0-100.0); MEAN PLATELET VOLUME 9.7 fL (7.4-10.4); MONOCYTES 9.8 % (2-11); NEUTROPHILS 75.3 % (40-80); PLATELET COUNT 373 10x3/uL (130-400); RBC 3.62 10x6/uL (4.00-5.40); WBC 13.7 10x3/uL (4.8-10.8)
[2020-07-06 09:12] LABS: HEXAGONAL PHASE PHOS 5 sec (0-11); LUPUS - INTERPRETATION Comment: (()); LUPUS - dRVVT 151.2 sec (0.0-47.0); LUPUS - dRVVT CONFIRMATION 1.2 ratio (0.8-1.2); PTT-LA MIX 52.5 sec (0.0-48.9)
[2020-07-06 11:03] VITALS: BP 142/65
--- NOTE | 2020-07-06 12:16 | NUR ---
BOLUS OF HEPARIN OF 3000 UNITS GIVEN AT THIS TIME AND DRIP INCREASED BY 200 WHICH IS NOW RUNNING AT 22 PER PROTOCOL. C/L IN REACH AT BEDSIDE.
[2020-07-06 15:00] VITALS: BP 106/52
[2020-07-06 15:15] VITALS: BP 120/56
--- NOTE | 2020-07-06 15:37 | NUR ---
I have reviewed this patient and I concur with the Shift Assessment completed by the Licensed Practical Nurse today this shift.
--- NOTE | 2020-07-06 18:49 | NUR ---
REC'D IN WALKING ROUNDS EASILY TO AROUSED WHEN NAME IS CALLED. RESP EVEN AND UNLABORED WITH NO DISTRESS NOTED. CAN EXPRESS NEEDS AND WANTS. BLISTERS NOTED TO LEFT FOOT THE ONE TOP WITH NOTED WEEPING. ASSESSMENT COMPLETED. C/L IN REACH AT BEDSIDE.
[2020-07-06 20:00] VITALS: BP 116/56
[2020-07-07] VITALS: BP 141/66
--- NOTE | 2020-07-07 00:11 | NUR ---
I have reviewed this patient and I concur with the Shift Assessment completed by the Licensed Practical Nurse today this shift.
[2020-07-07 04:00] VITALS: BP 142/64
[2020-07-07 05:26] LABS: HEMATOCRIT 30.1 % (36.0-48.0); HEMOGLOBIN 8.6 g/dL (12-16); MCH 23.7 pg (26.0-34.0); MCHC 28.6 g/dL (31.0-37.0); MCV 82.9 fL (80.0-100.0); MEAN PLATELET VOLUME 9.7 fL (7.4-10.4); RBC 3.63 10x6/uL (4.00-5.40); RDW 20.2 % (11.5-14.5); WBC 14.8 10x3/uL (4.8-10.8)
--- NOTE | 2020-07-07 07:00 | NUR ---
REC'D IN WALKING ROUND IN BED WITH EYES CLOSED EASILY TO AROUSED WHEN NAME IS CALLED. RESP EVEN AND UNLABORED WITH NO DISTRESS NOTED. CAN EXPRESS NEEDS AND WANTS.NO C/O NOTED OR VOICED. WAS INFORMED BY BUGGY MAN NURSE THAT LAB HAD YET TO COME AND DRAW PT MORNING LAB FOR HER APTT NIGHT NURSE STATED THAT LAB STATES THAT THEY ARE RUNNING BEHIND AND THAT THEY WOULD GET TO IT. ASSESSMENT COMPLETED. C/L IN REACH AT BEDSIDE.
--- NOTE | 2020-07-07 07:10 | NUR ---
REC'D CALL BACK FROM LAB AT THIS TIME WITH RESULTS OF APTT WHICH WAS 169.3. DRIP WAS THEN PLACED ON HOLD FOR 60 MINUTES PER PROTOCOL AND DECREASE DOWN BY 300 UNITS AFTER HOLD ENDED.
[2020-07-07 07:15] LABS: INR 1.26 (0.85-1.17); PROTIME 15.7 SECONDS (11.6-15.0)
[2020-07-07 07:34] LABS: APTT 169.3 SECONDS (22.8-39.4)
--- NOTE | 2020-07-07 07:40 | NUR ---
RECEIVED CALL FROM PILAR IN LAB PT APPT IS 169.3. RELAYED MESSAGE TO PT NURSE. CONTINUE WITH PLAN OF CARE
[2020-07-07 09:58] VITALS: BP 129/56
--- NOTE | 2020-07-07 10:37 | NUR ---
REC'D CALL FROM IR TO HOLD HEPARIN AT THIS TIME. HEPARIN PLACED ON HOLD.
--- NOTE | 2020-07-07 12:46 | NUR ---
LAB WAS REDRAWN AT THIS TIME WITH RESULTS OF 72.4.
--- NOTE | 2020-07-07 13:00 | NUR ---
DRIP WAS RESTARTED AT 20 UNITS PER PROTOCOL AFTER REC'D CALL THAT PT WAS NOT GOING TO BE ABLE TO GET PROCEDURE DONE ON TODAY. PT MADE AWARE. C/L IN REACH AT BEDSIDE.
[2020-07-07 13:04] LABS: INR 1.18 (0.85-1.17)
[2020-07-07 13:06] LABS: APTT 72.4 SECONDS (22.8-39.4)
--- NOTE | 2020-07-07 13:18 | NUR ---
LUNCH TRAY WAS REORDER AT THIS TIME AND PT WILL BE NPO AFTER MIDNIGHT ON TONIGHT FOR PROCEDURE ON TOMORROW.
--- NOTE | 2020-07-07 13:30 | NUR ---
AT THIS TIME DRIP RATE WAS TURN DOWN TO 17 VIA IR NURSE.
[2020-07-07 13:33] VITALS: BP 112/50
--- NOTE | 2020-07-07 14:26 | MORECARE ---
CASE MANAGEMENT DISCHARGE SUMMARY PATIENT: PATT TOVAR UNIT: [id number] ADM DATE: 07/01/20 AGE: 75 : 46 SEX: F ROOM/BED: D.2223 AUTHOR: FRANKIE PÉREZ PHYSICIAN: REFERRING PHYSICIAN: RALPH GODINEZ MD DATE OF SERVICE: 07/07/20 Discharge Plan Patient Name: PATT TOVAR Facility: [facility]:[place] : 1945 Planned Disposition: Anticipated Discharge Date: Discharge Date: Expected LOS: Initial Reviewer: [email or web address] Initial Review Date: 07/01/2020 Generated: 07/07/20 3:26 pm Patient Name: PATT TOVAR Page [phone] at 1426 All edits/amendments must be made on the electronic document DICTATION DATE: 07/07/20 142 SILO TENDER: OSMANY 07/07/20 142 RPT#: [id number] DC DATE: STATUS: ADM IN [facility] [address] [place] [address] END OF REPORT
[2020-07-07 18:25] VITALS: BP 120/66
--- NOTE | 2020-07-07 18:30 | NUR ---
NO CHANGES NOTED TO DRIP PER LABS OF 89.5. WITH NEXT LAB IN AM PER PROTOCOL.
--- NOTE | 2020-07-07 18:45 | NUR ---
I have reviewed this patient and I concur with the Shift Assessment completed by the Licensed Practical Nurse today this shift.
[2020-07-07 20:00] VITALS: BP 107/40
[2020-07-08] VITALS (12 sets, daily range): BP systolic 85–198; BP diastolic 37–68
[2020-07-08 04:35] LABS: HEMOGLOBIN 7.9 g/dL (12-16); LYMPHOCYTES 12.1 % (15-50); MCH 24.5 pg (26.0-34.0); MCHC 29.3 g/dL (31.0-37.0); MCV 83.9 fL (80.0-100.0); MEAN PLATELET VOLUME 9.4 fL (7.4-10.4); NEUTROPHILS 78.8 % (40-80); PLATELET COUNT 379 10x3/uL (130-400); RBC 3.22 10x6/uL (4.00-5.40); RDW 20.3 % (11.5-14.5); WBC 14.4 10x3/uL (4.8-10.8)
[2020-07-08 04:44] LABS: INR 1.1 (0.85-1.17); PROTIME 14.2 SECONDS (11.6-15.0)
[2020-07-08 04:47] LABS: ANION GAP 5.6 mmol/L (8-16); CALCIUM 7.9 mg/dL (8.5-10.1); CREATININE - SERUM 0.8 mg/dL (0.6-1.3); MAGNESIUM - SERUM 1.8 mg/dL (1.8-2.4); POTASSIUM - SERUM 3.6 mmol/L (3.5-5.1)
--- NOTE | 2020-07-08 06:00 | NUR ---
CALLED LAB FOR APTT RESULTS. IT SHOWS IT HAS STILL NOT BEEN RECIEVED. LAB STATED THEY WILL FIX IT AND RESULT IT. WILL FALLOW UP.
--- NOTE | 2020-07-08 06:18 | NUR ---
I have reviewed this patient and I concur with the Shift Assessment completed by the Licensed Practical Nurse today this shift.
--- NOTE | 2020-07-08 06:45 | NUR ---
STILL WAITING ON APTT TO RESULT NOW SHOWS PENDING. CALLED LAB TWICE.
--- NOTE | 2020-07-08 06:56 | NUR ---
APTT JUST RESULTED BACK. 147.5. HEPARIN ON HOLD FOR 30MIN AND DOWN BY 2ML/HR.
--- NOTE | 2020-07-08 07:27 | NUR ---
HEPRIN DRIP RESUMED AT 0728. ALREADY ADJUSTED BY [facility]. WILL PLACE REDRAW APTT.
--- NOTE | 2020-07-08 10:15 | NUR ---
HEPRIN DRIP TURNED OFF PER IR. PADMINI DUENAS NOTIFIED ME.
--- NOTE | 2020-07-08 11:26 | NUR ---
OT NOTE: PT REQUIRES MODERATE ENCOURAGEMENT TO PARTICIPATE. MOD VERBAL AND PHYSICAL CUES FOR BED MOB INCLUDING ROLLING AND SUPINE TO SIT. ABLE TO WASH FACE, HANDS WITH WASHCLOTH AND SET UP. PERFORMED UE/LE EXS WHILE SITTING ON EOB. SIT TO STAND WITH WALKER AND MOD ASSIST X 2..ATTEMPTED TO TAKE SEVERAL SIDE STEPS BUT REQIRED 2 ATTEMPTS BECAUSE PT HAD TO SIT DOWN. PRACTICED BED MOB TO GET BACK TO BED WITH TRAPEZE AND CONSTANT VERBAL CUEING.. ENCOURAGING PT TO DO MUCH ON HER OWN POSSIBLE..MUCH BETTER TODAY VS YESTERDAY. FABIÁN MARINO, OTR/L [phone]
--- NOTE | 2020-07-08 11:36 | NUR ---
PT LAYING ON RIGHT SIDE. NO NEEDS AT THIS TIME. CL IN REACH. WCTM
--- NOTE | 2020-07-08 16:04 | NUR ---
PT TAKEN WITH FLYNN RN FOR IR LIVER BIOPSY
[2020-07-08 16:09] LABS: FACTOR II DNA ANALYSIS Negative (())
--- NOTE | 2020-07-08 18:33 | NUR ---
TOLD TO RESTART HEPRIN DRIP PER PROTOCOL AT 1900 PM BY PADMINI BANERJEE FROM IR.
--- NOTE | 2020-07-08 19:15 | NUR ---
RESTARTED HEPRIN DRIP.
--- NOTE | 2020-07-08 19:30 | NUR ---
PT IN BED, AAO X 3, RESP EVEN AND UNLABORED. NO DISTRESS NOTED, CL IN REACH, SR UP X 2.
--- NOTE | 2020-07-09 00:35 | NUR ---
I have reviewed this patient and I concur with the Shift Assessment completed by the Licensed Practical Nurse today this shift.
[2020-07-09 03:49] VITALS: BP 134/52
[2020-07-09 07:11] LABS: BASOPHILS 0.1 % (0-2); EOSINOPHILS 1.5 % (0-7); HEMATOCRIT 28.7 % (36.0-48.0); HEMOGLOBIN 8.3 g/dL (12-16); IMMATURE GRANULOCYTES 0.7 % (0-5); LYMPHOCYTES 8.3 % (15-50); MCH 23.6 pg (26.0-34.0); MCHC 28.9 g/dL (31.0-37.0); MEAN PLATELET VOLUME 9.6 fL (7.4-10.4); MONOCYTES 6.8 % (2-11); NEUTROPHILS 82.6 % (40-80); PLATELET COUNT 334 10x3/uL (130-400); RBC 3.51 10x6/uL (4.00-5.40); RDW 20.7 % (11.5-14.5); WBC 15.7 10x3/uL (4.8-10.8)
[2020-07-09 07:12] LABS: MCV 81.8 fL (80.0-100.0)
[2020-07-09 07:20] LABS: CALC OSMOLALITY 278 mosm/kg (275-300); CARBON DIOXIDE 32.5 mmol/L (21.0-32.0); CHLORIDE - SERUM 103 mmol/L (98-107); CREATININE - SERUM 0.6 mg/dL (0.6-1.3); MAGNESIUM - SERUM 1.7 mg/dL (1.8-2.4); POTASSIUM - SERUM 3.8 mmol/L (3.5-5.1); SODIUM 139 mmol/L (136-145); UREA NITROGEN 10 mg/dL (7-18); eGFR NON AFRICAN AMERICAN > 90 mL/min (90-120)
[2020-07-09 07:26] LABS: GLUCOSE 138 mg/dL (74-106)
[2020-07-09 07:30] LABS: INR 1.14 (0.85-1.17); PROTIME 14.6 SECONDS (11.6-15.0)
--- NOTE | 2020-07-09 07:43 | NUR ---
PATIENT SLEEPING. LUNGS DIMINISHED BILATERALLY. HEART SOUNDS S1 AND S2 HEARD IN ALL BARBER. BOWEL SOUNDS ACTIVE X 4. IV TO RFA PATENT WITHOUT REDNESS. DENIES NEEDS. BED LOW. BED ALARM ON. CALL BARRIOS AND PERSONAL ITESM IN REACH. WILL CONTINUE TO MONITOR.
[2020-07-09 09:16] VITALS: BP 116/46
--- NOTE | 2020-07-09 09:21 | NUR ---
APTT 107.6. HEPARINE DRIP DECREASED FROM 17ML/HR TO 15ML/HR PER PROTOCOL. REDRAW PLACED FOR 1500.
--- NOTE | 2020-07-09 12:26 | NUR ---
NUTRITION FOLLOW UP: COMMENTS: Patient on the phone during visit this am. Patient has been eating well for the past 5 meals. No new weight since 07/02. Patient has been experiencing high POC glucose levels. DIET: Regular Diet PO INTAKE: 95% avg for last 5 meals WEIGHT: 244 lbs on 07/02 BM: x 1 on 07/08 SIG LABS: POC Glucose- 318, 161, 261, 316, 362 SIG MEDS: Humalog, Mag Ox, Zofran, Heparin, Protonix RECOMMENDATIONS: -Recommend changing diet to Diabetic to help with blood glucose labs RD to continue to follow and monitor patient DHS
--- NOTE | 2020-07-09 12:27 | MORECARE ---
CASE MANAGEMENT DISCHARGE SUMMARY PATIENT: PATT TOVAR UNIT: [id number] ADM DATE: 07/01/20 AGE: 75 : 46 SEX: F ROOM/BED: D.2223 AUTHOR: FRANKIE PÉREZ PHYSICIAN: REFERRING PHYSICIAN: RALPH GODINEZ MD DATE OF SERVICE: 07/09/20 Discharge Plan Patient Name: PATT TOVAR Facility: [facility]:[place] : 1945 Planned Disposition: Anticipated Discharge Date: Discharge Date: Expected LOS: Initial Reviewer: [email or web address] Initial Review Date: 07/01/2020 Generated: 07/09/20 1:26 pm Last DP export: 07/07/20 1:27 p Patient Name: PATT TOVAR Page [phone] at 1227 All edits/amendments must be made on the electronic document DICTATION DATE: 07/09/20 1226 TRAIN PLANNER: OSMANY 07/09/20 1226 RPT#: [id number] DC DATE: STATUS: ADM IN [facility] [address] [place] [address] END OF REPORT
--- NOTE | 2020-07-09 12:34 | MORECARE ---
CASE MANAGEMENT DISCHARGE SUMMARY PATIENT: PATT TOVAR UNIT: [id number] ADM DATE: 07/01/20 AGE: 75 : 46 SEX: F ROOM/BED: D.2223 AUTHOR: ELISA,DOC PHYSICIAN: REFERRING PHYSICIAN: RALPH GODINEZ MD DATE OF SERVICE: 07/09/20 Discharge Plan Patient Name: PATT TOVAR Facility: [facility]:[place] : 1945 Planned Disposition: Anticipated Discharge Date: Discharge Date: Expected LOS: Initial Reviewer: [email or web address] Initial Review Date: 07/01/2020 Generated: 07/09/20 1:33 pm Comments DCP- Discharge Planning Updated by [email or web address]: Herlinda العلي on 07/09/20 11:[address] Patient Name: PATT TOVAR Admission Status: Elective Accout number: [id number] Admission Date: 07-01-2020 : 1945 Admission Diagnosis:ACUTE EMBOLISM AND THOMBOS UNSP DEEP VN UNSP LOWER EXTR Attending: RALPH GODINEZ Current LOS: 8 Anticipated DC Date: Planned Disposition: Primary Insurance: MEDICARE A & B Discharge Planning Comments: CM met with patient at bedside after explaining CM role and obtaining verbal consent. CM discussed availability / needs of home health, REHAB and medical equipment. PATIENT UNSURE OF NEEDS AT THIS TIME. WAITING RESULTS OF LIVER BIOPSY. SHE NORMALLY LIVES AT HOME WITH HER DAUGHTER. MAY NEED HH OR REHAB AT TIME OF DC. CM WILL FOLLOW AND ASSIST NEEDED. Front Office Associate: Herlinda العلي DCPIA - Discharge Planning Initial Assessment Updated by [email or web address]: Herlinda العلي on 07/09/20 12:29 pm * Is the patient Alert and Oriented? Yes * Preadmission Environment Home with Family * ADLs Independent * Other Equipment CANE, WALKER * List name and contact numbers for known caregivers / representatives who currently or will assist patient after discharge: DAUGHTER * Community resources currently utilized None * Additional services required to return to the preadmission environment? No * Can the patient safely return to the preadmission environment? Yes * Has this patient been hospitalized within the prior 30 days at any hospital? No Last DP export: 07/09/20 11:27 a Patient Name: PATT TOVAR Page [id number] at 1234 All edits/amendments must be made on the electronic document DICTATION DATE: 07/09/20 1233 CRYPTOLOGIC LINGUIST: OSMANY 07/09/20 1233 RPT#: [id number] DC DATE: STATUS: ADM IN [facility] [address] [place] [address] END OF REPORT
[2020-07-09 12:57] VITALS: BP 109/56
--- NOTE | 2020-07-09 13:40 | NUR ---
OT NOTE: SIT TO STAND WITH MAX ASSIST; ABLE TO TAKE 2 STEPS WITH MAX ASSIST; BED MOB WITH MOD ASSIST; PERFORMED WELL WITH UE/LE EXS X 10 REPS X 2 SETS; SIMPLE GROOMING TASKS WITH SET UP; MAX ASSIST FOR TOILET HYGIENE; MIN ASSIST WITH SIT TO SUPINE. FABIÁN MARINO, OTR/L [phone]
--- NOTE | 2020-07-09 16:03 | NUR ---
NO CHANGE MADE TO HEPARIN DRIP PER ORDER D/T APTT 79.8.
--- NOTE | 2020-07-09 16:47 | NUR ---
OT NOTE: PT COMPLETED SIDE ROLLING WITH MOD/MIN A. PT COMPLETED POSITIONING WITH MIN A . PT COMPLETED FACE HYGIENE WITH SETUP. PT COMPLETED UE AROM EXS TOLERATED. [phone] THANK YOU,CARLYLE GUERRERO
[2020-07-09 17:06] VITALS: BP 100/41
--- NOTE | 2020-07-09 19:00 | NUR ---
BEDSIDE REPORT RECEIVED AND CARE OF PT ASSUMED. PT LYING IN SUPINE POSITION WITH EYES CLOSED. IV TO RIGHT FA PATENT WITH HEPARIN INFUSING AT 15 ML/HR. WILL MONITOR FOR NEEDS.
[2020-07-09 20:00] VITALS: BP 100/45
[2020-07-10 03:07] LABS: PROTEIN C - ANTIGEN 97 % (60-150); PROTEIN C - FUNCTIONAL 131 % (73-180)
[2020-07-10 04:00] VITALS: BP 103/58
[2020-07-10 06:23] LABS: BASOPHILS 0.2 % (0-2); EOSINOPHILS 1.4 % (0-7); HEMATOCRIT 28.8 % (36.0-48.0); HEMOGLOBIN 8.4 g/dL (12-16); IMMATURE GRANULOCYTES 0.8 % (0-5); MCHC 29.2 g/dL (31.0-37.0); MCV 82.3 fL (80.0-100.0); MEAN PLATELET VOLUME 9.9 fL (7.4-10.4); MONOCYTES 6.6 % (2-11); PLATELET COUNT 357 10x3/uL (130-400); RDW 21.3 % (11.5-14.5); WBC 16.1 10x3/uL (4.8-10.8)
[2020-07-10 06:26] LABS: INR 1.13 (0.85-1.17); PROTIME 14.4 SECONDS (11.6-15.0)
[2020-07-10 06:29] LABS: APTT 59.7 SECONDS (22.8-39.4)
[2020-07-10 06:47] LABS: CALC OSMOLALITY 287 mosm/kg (275-300); CALCIUM 8.1 mg/dL (8.5-10.1); CARBON DIOXIDE 29.9 mmol/L (21.0-32.0); CHLORIDE - SERUM 104 mmol/L (98-107); CREATININE - SERUM 0.7 mg/dL (0.6-1.3); MAGNESIUM - SERUM 1.9 mg/dL (1.8-2.4); POTASSIUM - SERUM 3.8 mmol/L (3.5-5.1); SODIUM 142 mmol/L (136-145); UREA NITROGEN 9 mg/dL (7-18); eGFR NON AFRICAN AMERICAN 87 mL/min (90-120)
[2020-07-10 06:51] LABS: GLUCOSE 198 mg/dL (74-106)
--- NOTE | 2020-07-10 07:33 | NUR ---
ALERT AND ORIENTED. LUNGS DIMINISHED BILATERALLY. HEART SOUNDS S1 AND S2 HEARD IN ALL BARBER. BOWEL SOUNDS ACTIVE X 4. IV TO RFA PATENT WITHOUT REDNESS. DENIES NEEDS. BED LOW. BED ALARM ON. CALL BARRIOS AND PERSONAL ITEMS IN REACH. WILL CONTINUE TO MONITOR.
[2020-07-10 09:34] VITALS: BP 134/52
--- NOTE | 2020-07-10 10:26 | NUR ---
ABG ORDERED PER DR WALLER.
--- NOTE | 2020-07-10 14:58 | NUR ---
HEPARIN DRIP INCREASED TO 17ML/HR. ORDER PLACED FOR REDRAW AT 2100.
[2020-07-10 17:45] VITALS: BP 139/89
--- NOTE | 2020-07-10 18:22 | NUR ---
RESTING IN BED. DENIES NEEDS. BED LOW. CALL BARRIOS AND PERSONAL ITEMS IN REACH. WILL CONTINUE TO MONITOR.
--- NOTE | 2020-07-10 19:00 | NUR ---
BEDSIDE REPORT RECEIVED AND CARE OF PT ASSUMED. PT LYING ON LEFT SIDE WITH EYES CLOSED. IV TO RIGHT FA PATENT WITH HEPARIN INFUSING AT 17 ML/HR. BHATIA CATHETER DRAINING TO GRAVITY WITH YELLOW URINE IN COLLECTION BAG. WILL MONITOR FOR NEEDS.
--- NOTE | 2020-07-10 21:05 | NUR ---
APTT 75.0 THIS CHECK REQUIRING NO CHANGE IN HEPARIN RATE PER THE HEPARIN PROTOCOL...WILL REMAIN AT 17 ML/HR
[2020-07-10 21:40] VITALS: BP 133/51
[2020-07-10 23:45] VITALS: BP 130/53
[2020-07-11 04:24] VITALS: BP 118/46
[2020-07-11 07:20] LABS: CARBON DIOXIDE 30.2 mmol/L (21.0-32.0); CREATININE - SERUM 0.8 mg/dL (0.6-1.3)
[2020-07-11 07:21] LABS: POTASSIUM - SERUM 3.2 mmol/L (3.5-5.1)
[2020-07-11 07:25] LABS: BASOPHILS 0.1 % (0-2); HEMATOCRIT 26.2 % (36.0-48.0); HEMOGLOBIN 7.6 g/dL (12-16); IMMATURE GRANULOCYTES 0.5 % (0-5); LYMPHOCYTES 9.5 % (15-50); MCH 24.1 pg (26.0-34.0); MCV 83.2 fL (80.0-100.0); MEAN PLATELET VOLUME 10.2 fL (7.4-10.4); NEUTROPHILS 80.9 % (40-80); PLATELET COUNT 368 10x3/uL (130-400); RBC 3.15 10x6/uL (4.00-5.40); RDW 21.4 % (11.5-14.5); WBC 16.7 10x3/uL (4.8-10.8)
[2020-07-11 07:31] LABS: INR 1.08 (0.85-1.17)
[2020-07-11 08:07] LABS: APTT 93.3 SECONDS (22.8-39.4)
[2020-07-11 09:17] VITALS: BP 119/80
[2020-07-11 19:09] VITALS: BP 152/69
--- NOTE | 2020-07-11 19:20 | NUR ---
BEDSIDE REPORT RECEIVED AND CARE OF PT ASSUMED. PT LYING IN LOW PEPE'S POSITION. GOWN AND BEDDING COVERED WITH BLOOD, PT HAD PULLED OUT HER IV. BEDPADS AND SHEETS COVERED WITH BLOOD AND FECES. PT BATHED AND ALL LINENS AND GOWN CHANGED. BHATIA CATHETER DRAINING TO GRAVITY WITH YELLOW URINE IN COLLECTION BAG. WILL MONITOR FOR NEEDS.
[2020-07-11 20:00] VITALS: BP 118/54
--- NOTE | 2020-07-11 20:00 | NUR ---
PROVIDED PT WITH ICE WATER AND SODA.
--- NOTE | 2020-07-11 20:04 | NUR ---
RE-SITED IV TO RIGHT AC USING 20 GUAGE CATHETER IN 2 STICKS. HEPARIN DRIP RE-STARTED.
--- NOTE | 2020-07-11 21:01 | NUR ---
PT RESTING QUIETLY ON LEFT SIDE WITH EYES CLOSED. WILL CONTINUE TO MONITOR CLOSELY FOR NEEDS.
[2020-07-12] VITALS: BP 134/61
[2020-07-12 04:00] VITALS: BP 118/46
[2020-07-12 05:46] LABS: PROTIME 13.2 SECONDS (11.6-15.0)
[2020-07-12 05:47] LABS: APTT 57.5 SECONDS (22.8-39.4)
[2020-07-12 05:55] LABS: CALCIUM 7.6 mg/dL (8.5-10.1); CARBON DIOXIDE 29.4 mmol/L (21.0-32.0); CHLORIDE - SERUM 103 mmol/L (98-107); CREATININE - SERUM 0.7 mg/dL (0.6-1.3); MAGNESIUM - SERUM 1.9 mg/dL (1.8-2.4); SODIUM 138 mmol/L (136-145); UREA NITROGEN 7 mg/dL (7-18); eGFR NON AFRICAN AMERICAN 87 mL/min (90-120)
[2020-07-12 05:57] LABS: CALC OSMOLALITY 284 mosm/kg (275-300); GLUCOSE 297 mg/dL (74-106)
[2020-07-12 07:30] LABS: BASOPHILS 0.1 % (0-2); EOSINOPHILS 1.7 % (0-7); HEMATOCRIT 29.7 % (36.0-48.0); HEMOGLOBIN 8.7 g/dL (12-16); IMMATURE GRANULOCYTES 0.7 % (0-5); LYMPHOCYTES 10.1 % (15-50); MCH 24.2 pg (26.0-34.0); MCHC 29.3 g/dL (31.0-37.0); MCV 82.7 fL (80.0-100.0); MEAN PLATELET VOLUME 10.7 fL (7.4-10.4); MONOCYTES 5.8 % (2-11); NEUTROPHILS 81.6 % (40-80); PLATELET COUNT 355 10x3/uL (130-400); RBC 3.59 10x6/uL (4.00-5.40); RDW 21.9 % (11.5-14.5); WBC 15.2 10x3/uL (4.8-10.8)
[2020-07-12 08:56] VITALS: BP 170/40
--- NOTE | 2020-07-12 13:52 | NUR ---
PT LAB WAS TO BE DRAWN AT 1230 FOR APTT, STILL NO LAB DRAW, CALLED LAB AND WAS INFORMED SOMEONE WAS COMING. RATE IS STILL AT 18 FOR HEPARIN. NO S/SX OF DISTRESS, CONTINUE WITH PLAN OF CARE
--- NOTE | 2020-07-12 15:00 | NUR ---
PATIENT APTT RESULTED AND LEVEL IS 67.2 PER PROTOCOL NO CHANGE TO DRIP. CONTINUE WITH PLAN OF CARE
--- NOTE | 2020-07-12 18:41 | NUR ---
I have reviewed this patient and I concur with the Shift Assessment completed by the Licensed Practical Nurse today this shift.
[2020-07-12 18:45] VITALS: BP 106/59
--- NOTE | 2020-07-12 19:15 | NUR ---
BEDSIDE REPORT RECEIVED AND CARE OF PT ASSUMED. PT WITH LARGE INCONTINENT BM AT THIS ASSESSMENT. CHANGED BEDPADS AND CLEANSED LAKISHA AREA AND PERFORMED BHATIA CARE. POSITIONED FOR COMFORT.
[2020-07-12 20:00] VITALS: BP 148/54
--- NOTE | 2020-07-13 00:15 | NUR ---
PT HAD INCONTINENCE OF BOWEL DROM HIS BED TO THE BATHROOM. CLEANED PT AND ROOM. ALL LINENS AND GOWN CHANGED. IV PULLED OUT. RE-SITED BACK TO RIGHT AC USING 20 GUAGE CATHETER IN ONE STICK. HEPARIN DRIP RE-STARTED.
--- NOTE | 2020-07-13 01:11 | NUR ---
PT WITH LARGE, LOOSE, INCONTINENT BM. CHANGED BEDPADS AND PERFORMED LAKISHA CARE. PLACED A STAT LOCK ON RIGHT LEG TO IMMOBILIZE BHATIA TUBING.
[2020-07-13 04:00] VITALS: BP 145/69
[2020-07-13 06:53] LABS: BASOPHILS 0.3 % (0-2); EOSINOPHILS 1.4 % (0-7); HEMATOCRIT 28.1 % (36.0-48.0); IMMATURE GRANULOCYTES 0.5 % (0-5); LYMPHOCYTES 10.7 % (15-50); MCH 23.8 pg (26.0-34.0); MCHC 28.5 g/dL (31.0-37.0); MCV 83.6 fL (80.0-100.0); MEAN PLATELET VOLUME 10.3 fL (7.4-10.4); NEUTROPHILS 81.1 % (40-80); PLATELET COUNT 420 10x3/uL (130-400); RBC 3.36 10x6/uL (4.00-5.40); RDW 22.1 % (11.5-14.5); WBC 15.6 10x3/uL (4.8-10.8)
--- NOTE | 2020-07-13 07:19 | NUR ---
ALERT AND ORIENTED. LUNGS DIMINISHED BILATERALLY. HEART SOUNDS S1 AND S2 HEARD IN ALL BARBER. BOWEL SOUNDS ACTIVE X 4. IV TO RIGHT AC PATENT WITHOUT REDNESS. WAITING APTT TO COME BACK FOR HEPARIN DRIP. O2 IN PLACE AT 4L NC. DENIES NEEDS. BED LOW. BED ALARM IN PLACE. CALL BARRIOS AND PERSONAL ITEMS IN REACH. WILL CONTINUE TO MONITOR.
[2020-07-13 07:28] LABS: ANION GAP 8.6 mmol/L (8-16); CALCIUM 8.3 mg/dL (8.5-10.1); CREATININE - SERUM 0.8 mg/dL (0.6-1.3); POTASSIUM - SERUM 3.6 mmol/L (3.5-5.1)
--- NOTE | 2020-07-13 07:58 | NUR ---
HEPARIN DRIP INCREASED TO 19ML/HR. APTT REDRAW ORDERED FOR 1400.
[2020-07-13 09:10] LABS: % SATURATION 18 % (15-55); IRON 28 ug/dl (35-150); TOTAL IRON BIND CAPACITY 153 ug/dl (260-445); UNSAT IRON BIND CAPACITY 125 ug/dl (150-375)
[2020-07-13 09:13] VITALS: BP 137/58
--- NOTE | 2020-07-13 11:44 | NUR ---
RESTING IN BED. DENIES NEEDS. WILL CONTINUE TO MONITOR.
[2020-07-13 12:56] VITALS: BP 151/55
--- NOTE | 2020-07-13 13:41 | NUR ---
NO CHANGE TO HEPARIN DRIP PER APTT AND HEPARIN DRIP PROTOCOL. APTT REDRAW ORDERED FOR 0500 TOMORROW PER PROTOCOL.
--- NOTE | 2020-07-13 14:21 | NUR ---
OT NOTE: PT ACTUALLY PERFORMED VERY WELL TODAY. PT REFUSED FOR SEVERAL DAYS, HOWEVER, REPORTED THAT SHE FELT BETTER TODAY. BED MOB WITH MIN/MOD ASSIST. TOLERATED SITTING UP ON EOB X APPROX 10 MIN WHILE PERFORMING BED BATH. PT ABLE TO WASH FACE, HANDS, AND ATTEMPTED TO COMB HAIR.. REUQIRED MOD ASSIST WITH LE BATHING AND MAX ASSIST WITH PERINEAL CARE. PT ABLE TO PERFORM SIT TO STAND WITH WALKER AND ABLE TO SIDE STEP 2-3 STEPS X 3 TRIALS. REUQIRED MODERATE REST BREAK IN BETWEEN ATTEMPTS. UE STRENGHTENING EXS WITH MIN RB. ABLE TO GET BACK IN BED WITHOUT ASSIST. FABIÁN MARINO, OTR/L [phone]
--- NOTE | 2020-07-13 17:13 | NUR ---
OT NOTE: PT COMPLETED SUPINE TO SIT USING TRAP BAR WITH MOD A. PT COMPLETED EOB SITTING WITH SBA. PT COMPLETED UE STRENGTHENING EXERCISES TOLERATED. [phone] THANK YOU,CARLYLE GUERRERO
[2020-07-13 20:00] VITALS: BP 121/52
--- NOTE | 2020-07-13 23:41 | NUR ---
I have reviewed this patient and I concur with the Shift Assessment completed by the Licensed Practical Nurse today this shift.
[2020-07-14 04:00] VITALS: BP 134/74
[2020-07-14 07:06] LABS: BASOPHILS 0.3 % (0-2); EOSINOPHILS 1.7 % (0-7); HEMATOCRIT 29.2 % (36.0-48.0); HEMOGLOBIN 8.5 g/dL (12-16); IMMATURE GRANULOCYTES 0.3 % (0-5); LYMPHOCYTES 10.8 % (15-50); MCH 24.1 pg (26.0-34.0); MCHC 29.1 g/dL (31.0-37.0); MEAN PLATELET VOLUME 11.1 fL (7.4-10.4); MONOCYTES 6.7 % (2-11); NEUTROPHILS 80.2 % (40-80); PLATELET COUNT 429 10x3/uL (130-400); RBC 3.52 10x6/uL (4.00-5.40); RDW 22.9 % (11.5-14.5); WBC 14.6 10x3/uL (4.8-10.8)
[2020-07-14 07:47] LABS: ALBUMIN 2.1 g/dL (3.4-5.0); ALKALINE PHOSPHATASE 145 U/L (30-120); ALT (SGPT) 38 U/L (10-68); BILIRUBIN - TOTAL 0.26 mg/dL (0.2-1.3); CALC OSMOLALITY 283 mosm/kg (275-300); CALCIUM 8.3 mg/dL (8.5-10.1); CARBON DIOXIDE 29.3 mmol/L (21.0-32.0); CHLORIDE - SERUM 102 mmol/L (98-107); CREATININE - SERUM 0.7 mg/dL (0.6-1.3); GLUCOSE 222 mg/dL (74-106); POTASSIUM - SERUM 3.5 mmol/L (3.5-5.1); PRO BNP 1165 pg/mL (0-125); PROTEIN - SERUM 6.4 g/dL (6.4-8.2); SODIUM 140 mmol/L (136-145); UREA NITROGEN 7 mg/dL (7-18); eGFR NON AFRICAN AMERICAN 87 mL/min (90-120)
--- NOTE | 2020-07-14 08:15 | NUR ---
RECEIVED BEDSIDE REPORT. PT SITTING UP IN BED, A&O X4. PIV IN RIGHT AC, PATENT AND INFUSING HEP, NO REDNESS OR SWELLING. FSBS Q6. LEFT LEG SWOLLEN, SKIN TEAR ON LEFT FOOT. ABD DISTENDED, BOWEL SOUNDS ACTIVE X4 QUADS. BHATIA IN PLACE, PATENT, CLEAR YELLOW URINE, STATLOCK IN PLACE. O2 SAT 98% VIA 4L NC. EDUCATED PT ON CL AND NEEDS. BED LOW, RAILS X2. CL IN REACH. WILL CONTINUE TO MONITOR.
[2020-07-14 09:35] VITALS: BP 118/55
--- NOTE | 2020-07-14 11:45 | NUR ---
RECEIVED TELEPHONE ORDER TO D/C HEPARIN, AND START ELIQUIS AT 1600 FROM [employer], VERBALIZED ORDER BACK AND ENTERED INTO [employer].
[2020-07-14 13:25] VITALS: BP 127/51
--- NOTE | 2020-07-14 13:35 | NUR ---
OT NOTE: PT PERFORMED WELL AGAIN TODAY; BED MOB INCLUDING ROLLING AND SUPINE TO SIT WITH VERY MINIMAL ASSIST; TOLERATED SITTING ON EOB TO PERFORM UE/LE EXS; SIT TO STAND WITH MIN ASSIST X 2; MOD ASSIST AND MODERATE CUES TO TAKE A FEW SIDE STEPS. PT REPORTS THAT HER LEGS HURT. SHE IS IMPROVING AND TOLERATING INCREASED AMOUNT OF THERAPY. ABLE TO BRUSH HAIR, WASH FACE, AND MIN ASSIST TO NANDA CLEAN GOWN. FABIÁN MARINO, OTR/L [phone]
[2020-07-14 17:36] VITALS: BP 141/63
[2020-07-14 19:40] VITALS: BP 123/54
[2020-07-15 04:00] VITALS: BP 121/47
[2020-07-15 05:12] LABS: ALBUMIN 2.3 g/dL (3.4-5.0); ANION GAP 9.6 mmol/L (8-16); BILIRUBIN - TOTAL 0.26 mg/dL (0.2-1.3); CALCIUM 8.4 mg/dL (8.5-10.1); CARBON DIOXIDE 29.1 mmol/L (21.0-32.0); CREATININE - SERUM 0.8 mg/dL (0.6-1.3); POTASSIUM - SERUM 3.7 mmol/L (3.5-5.1); PROTEIN - SERUM 6.6 g/dL (6.4-8.2)
[2020-07-15 05:20] LABS: BASOPHILS 0.2 % (0-2); EOSINOPHILS 1.6 % (0-7); HEMATOCRIT 28.2 % (36.0-48.0); HEMOGLOBIN 8.2 g/dL (12-16); IMMATURE GRANULOCYTES 0.3 % (0-5); LYMPHOCYTES 8.8 % (15-50); MCH 24.3 pg (26.0-34.0); MCHC 29.1 g/dL (31.0-37.0); MCV 83.4 fL (80.0-100.0); MONOCYTES 7.8 % (2-11); NEUTROPHILS 81.3 % (40-80); PLATELET COUNT 435 10x3/uL (130-400); RBC 3.38 10x6/uL (4.00-5.40); RDW 22.7 % (11.5-14.5); WBC 14.7 10x3/uL (4.8-10.8)
--- NOTE | 2020-07-15 05:28 | NUR ---
I have reviewed this patient and I concur with the Shift Assessment completed by the Licensed Practical Nurse today this shift.
--- NOTE | 2020-07-15 07:44 | NUR ---
PATIENT IN BED. AWAKE TO SPEECH. DENIES PAIN OR NEEDS. BED LOW POSITION, CALL LIGHT IN REACH. WILL CONTINUE TO MONITOR.
[2020-07-15 10:22] VITALS: BP 110/43
[2020-07-15 13:46] VITALS: BP 131/71
--- NOTE | 2020-07-15 14:29 | NUR ---
Nutrition follow-up: Diet: Regular PO intake 75-100% of meals Labs reviewed Wt: 243# Pt continues confused per nurse PO intake continues to be good at this time RDN following.
--- NOTE | 2020-07-15 16:19 | MORECARE ---
CASE MANAGEMENT DISCHARGE SUMMARY PATIENT: PATT TOVAR UNIT: [id number] ADM DATE: 07/01/20 AGE: 75 : 46 SEX: F ROOM/BED: D.2223 AUTHOR: ELISA,DOC PHYSICIAN: REFERRING PHYSICIAN: RALPH GODINEZ MD DATE OF SERVICE: 07/15/20 Discharge Plan Patient Name: PATT TOVAR Facility: [facility]:[place] : 1945 Planned Disposition: Home with Hospice Anticipated Discharge Date: Discharge Date: Expected LOS: Initial Reviewer: [email or web address] Initial Review Date: 07/01/2020 Generated: 07/15/20 5:19 pm Comments DCP- Discharge Planning Updated by [id number]: Herlinda العلي on 07/15/20 3:[address] Patient Name: PATT TOVAR Admission Status: Elective Accout number: [id number] Admission Date: 07-01-2020 : 1945 Admission Diagnosis:ACUTE EMBOLISM AND THOMBOS UNSP DEEP VN UNSP LOWER EXTR Attending: RALPH GODINEZ Current LOS: 14 Anticipated DC Date: Planned Disposition: Home with Hospice Primary Insurance: MEDICARE A & B Discharge Planning Comments: CM SPOKE WITH PATIENT ABOUT HOSPICE, PATIENT WANTS TO GO HOME WITH HOSPICE AND REQUESTED I SPEAK WITH HER DAUGHTER. I CALLED HER DAUGHTER ROB AND SHE WILL BE HERE AT THE HOSPITAL ABOUT 2PM AND I WILL MEET WITH HER THEN. I AM ALSO CONTACTING [facility] TO SEE IF THEY WILL MEET US AT THE [facility] AT 2 TO MEET WITH PATIENT AND HER DAUGHTER. CM TO FOLLOW AND ASSIST NEEDED. Production Controller: Herlinda العلي DCP- Discharge Planning Updated by [email or web address]: Herlinda العلي on 07/09/20 11:[address] Patient Name: PATT TOVAR Admission Status: Elective Accout number: [id number] Admission Date: 07-01-2020 : 1945 Admission Diagnosis:ACUTE EMBOLISM AND THOMBOS UNSP DEEP VN UNSP LOWER EXTR Attending: RALPH GODINEZ Current LOS: 8 Anticipated DC Date: Planned Disposition: Primary Insurance: MEDICARE A & B Discharge Planning Comments: CM met with patient at bedside after explaining CM role and obtaining verbal consent. CM discussed availability / needs of home health, REHAB and medical equipment. PATIENT UNSURE OF NEEDS AT THIS TIME. WAITING RESULTS OF LIVER BIOPSY. SHE NORMALLY LIVES AT HOME WITH HER DAUGHTER. MAY NEED HH OR REHAB AT TIME OF DC. CM WILL FOLLOW AND ASSIST NEEDED. Production Controller: Herlinda العلي DCPIA - Discharge Planning Initial Assessment Updated by [email or web address]: Herlinda العلي on 07/09/20 12:29 pm * Is the patient Alert and Oriented? Yes * Preadmission Environment Home with Family * ADLs Independent * Other Equipment CANE, WALKER * List name and contact numbers for known caregivers / representatives who currently or will assist patient after discharge: DAUGHTER * Community resources currently utilized None * Additional services required to return to the preadmission environment? No * Can the patient safely return to the preadmission environment? Yes * Has this patient been hospitalized within the prior 30 days at any hospital? No External Providers External Provider: [facility] Next Contact Date: Service Request Date: Service Type: Resolution: Reviewer: Comments: Last DP export: 07/09/20 11:34 a Patient Name: PATT TOVAR Page [phone] at 1619 All edits/amendments must be made on the electronic document DICTATION DATE: 07/15/201618 CONSTRUCTION SALES REPRESENTATIVE: OSMANY 07/15/201618 RPT#: [id number] DC DATE: STATUS: ADM IN [facility] [address] [place] [address] END OF REPORT
--- NOTE | 2020-07-15 16:31 | MORECARE ---
CASE MANAGEMENT DISCHARGE SUMMARY PATIENT: PATT TOVAR UNIT: [id number] ADM DATE: 07/01/20 AGE: 75 : 46 SEX: F ROOM/BED: D.2223 AUTHOR: ELISA,DOC PHYSICIAN: REFERRING PHYSICIAN: RALPH GODINEZ MD DATE OF SERVICE: 07/15/20 Discharge Plan Patient Name: PATT TOVAR Facility: [facility]:[place] : 1945 Planned Disposition: Home with Hospice Anticipated Discharge Date: Discharge Date: Expected LOS: Initial Reviewer: [id number] Initial Review Date: 07/01/2020 Generated: 07/15/20 5:30 pm Comments DCP- Discharge Planning Updated by [id number]: Herlinda العلي on 07/15/20 3:[address] Patient Name: PATT TOVAR Admission Status: Elective Accout number: [id number] Admission Date: 07-01-2020 : 1945 Admission Diagnosis:ACUTE EMBOLISM AND THOMBOS UNSP DEEP VN UNSP LOWER EXTR Attending: RALPH GODINEZ Current LOS: 14 Anticipated DC Date: Planned Disposition: Home with Hospice Primary Insurance: MEDICARE A & B Discharge Planning Comments: CM SPOKE WITH PATIENT ABOUT HOSPICE, PATIENT WANTS TO GO HOME WITH HOSPICE AND REQUESTED I SPEAK WITH HER DAUGHTER. I CALLED HER DAUGHTER ROB AND SHE WILL BE HERE AT THE HOSPITAL ABOUT 2PM AND I WILL MEET WITH HER THEN. I AM ALSO CONTACTING [facility] TO SEE IF THEY WILL MEET US AT THE [facility] AT 2 TO MEET WITH PATIENT AND HER DAUGHTER. CM TO FOLLOW AND ASSIST NEEDED. Marine Resource Economist: Herlinda العلي DCP- Discharge Planning Updated by [email or web address]: Herlinda العلي on 07/09/20 11:[address] Patient Name: PATT TOVAR Admission Status: Elective Accout number: [id number] Admission Date: 07-01-2020 : 1945 Admission Diagnosis:ACUTE EMBOLISM AND THOMBOS UNSP DEEP VN UNSP LOWER EXTR Attending: RALPH GODINEZ Current LOS: 8 Anticipated DC Date: Planned Disposition: Primary Insurance: MEDICARE A & B Discharge Planning Comments: CM met with patient at bedside after explaining CM role and obtaining verbal consent. CM discussed availability / needs of home health, REHAB and medical equipment. PATIENT UNSURE OF NEEDS AT THIS TIME. WAITING RESULTS OF LIVER BIOPSY. SHE NORMALLY LIVES AT HOME WITH HER DAUGHTER. MAY NEED HH OR REHAB AT TIME OF DC. CM WILL FOLLOW AND ASSIST NEEDED. Marine Resource Economist: Herlinda العلي DCPIA - Discharge Planning Initial Assessment Updated by [id number]: Herlinda العلي on 07/09/20 12:29 pm * Is the patient Alert and Oriented? Yes * Preadmission Environment Home with Family * ADLs Independent * Other Equipment CANE, WALKER * List name and contact numbers for known caregivers / representatives who currently or will assist patient after discharge: DAUGHTER * Community resources currently utilized None * Additional services required to return to the preadmission environment? No * Can the patient safely return to the preadmission environment? Yes * Has this patient been hospitalized within the prior 30 days at any hospital? No External Providers External Provider: [facility] Next Contact Date: Service Request Date: Service Type: Resolution: Reviewer: Comments: Last DP export: 07/15/20 3:19 pm Patient Name: PATT TOVAR Page 11876 at 1631 All edits/amendments must be made on the electronic document DICTATION DATE: 07/15/20 163 SIGN LANGUAGE TEACHER: OSMANY 07/15/20 163 RPT#: [id number] DC DATE: STATUS: ADM IN [facility] [address] [place] [address] END OF REPORT
--- NOTE | 2020-07-15 16:35 | NUR ---
OT NOTE: BED MOB WITH MIN ASSIST; SIMPLE GROOMING AND UPPER BATHING WITH SET UP..PT REQUIRES ENCOURAGEMENT TO PERFORM THESE TASKS..DOES NOT INITIATE ANY ADLS EXCEPT FEEDING. PT PERFORMED UE EXS WHILE ON EOB. REMAINS ORIENTED TO SELF ONLY AND MILD CONFUSION..HOWEVER, SHE DID REMEMBER THAT SHE HAD JUST BEEN UP A SHORT WHILE AGO (WITH P.T.) AND DID NOT WANT TO STAND UP AGAIN. FABIÁN MARINO, OTR/L [phone]
[2020-07-15 18:07] VITALS: BP 147/69
[2020-07-15 20:00] VITALS: BP 132/54
[2020-07-16 04:00] VITALS: BP 115/41
[2020-07-16 05:00] LABS: BASOPHILS 0.2 % (0-2); EOSINOPHILS 1.9 % (0-7); HEMATOCRIT 28.3 % (36.0-48.0); HEMOGLOBIN 8.2 g/dL (12-16); IMMATURE GRANULOCYTES 0.2 % (0-5); LYMPHOCYTES 10.9 % (15-50); MCH 24.3 pg (26.0-34.0); MCV 83.7 fL (80.0-100.0); MEAN PLATELET VOLUME 9.6 fL (7.4-10.4); MONOCYTES 7.7 % (2-11); NEUTROPHILS 79.1 % (40-80); PLATELET COUNT 461 10x3/uL (130-400); RBC 3.38 10x6/uL (4.00-5.40); RDW 22.9 % (11.5-14.5); WBC 13.5 10x3/uL (4.8-10.8)
[2020-07-16 05:03] LABS: ALBUMIN 2.1 g/dL (3.4-5.0); ANION GAP 9.8 mmol/L (8-16); BILIRUBIN - TOTAL 0.3 mg/dL (0.2-1.3); CALCIUM 8.7 mg/dL (8.5-10.1); CARBON DIOXIDE 31.1 mmol/L (21.0-32.0); CREATININE - SERUM 0.8 mg/dL (0.6-1.3); POTASSIUM - SERUM 3.9 mmol/L (3.5-5.1); PROTEIN - SERUM 6.4 g/dL (6.4-8.2)
--- NOTE | 2020-07-16 05:36 | NUR ---
I have reviewed this patient and I concur with the Shift Assessment completed by the Licensed Practical Nurse today this shift.
--- NOTE | 2020-07-16 07:41 | NUR ---
PATIENT IN BED. AWAKES TO VOICE. DENIES PAIN OR NEEDS. BED LOW POSITION. CALL LIGHT IN REACH. WILL CONTINUE TO MONITOR.
[2020-07-16 09:52] VITALS: BP 131/78
--- NOTE | 2020-07-16 14:44 | MORECARE ---
CASE MANAGEMENT DISCHARGE SUMMARY PATIENT: PATT TOVAR UNIT: [id number] ADM DATE: 07/01/20 AGE: 75 : 46 SEX: F ROOM/BED: D.2223 AUTHOR: ELISA,DOC PHYSICIAN: REFERRING PHYSICIAN: RALPH GODINEZ MD DATE OF SERVICE: 07/16/20 Discharge Plan Patient Name: PATT TOVAR Facility: [facility]:[place] : 1945 Planned Disposition: Home with Hospice Anticipated Discharge Date: Discharge Date: Expected LOS: Initial Reviewer: [email or web address] Initial Review Date: 07/01/2020 Generated: 07/16/20 3:43 pm Comments DCP- Discharge Planning Updated by [email or web address]: Herlinda العلي on 07/16/20 1:[address] Patient Name: PATT TOVAR Admission Status: Elective Accout number: [id number] Admission Date: 07-01-2020 : 1945 Admission Diagnosis:ACUTE EMBOLISM AND THOMBOS UNSP DEEP VN UNSP LOWER EXTR Attending: RALPH GODINEZ Current LOS: 15 Anticipated DC Date: Planned Disposition: Home with Hospice Primary Insurance: MEDICARE A & B Discharge Planning Comments: MET WITH PATIENT'S DAUGHTER TODAY. SHE WILL NOT HAVE THE HOME READY TO BRING HER MOM HOME UNTIL AFTER THE WEEKEND. PLAN IS FOR DAUGHTER TO HAVE HOME READY FOR HOSPICE TO BRING IN EQUIPMENT SUNDAY AND THEN PATIENT CAN DC TO HOME WITH HER. CM TO FOLLOW AND ASSIST NEEDED. [place] [facility] WORK[facility] WITH FAMILY. Paper Wood Cutter: Herlinda العلي DCP- Discharge Planning Updated by [email or web address]: Herlinda العلي on 07/15/20 3:[address] Patient Name: PATT TOVAR Admission Status: Elective Accout number: [id number] Admission Date: 07-01-2020 : 1945 Admission Diagnosis:ACUTE EMBOLISM AND THOMBOS UNSP DEEP VN UNSP LOWER EXTR Attending: RALPH GODINEZ Current LOS: 14 Anticipated DC Date: Planned Disposition: Home with Hospice Primary Insurance: MEDICARE A & B Discharge Planning Comments: CM SPOKE WITH PATIENT ABOUT HOSPICE, PATIENT WANTS TO GO HOME WITH HOSPICE AND REQUESTED I SPEAK WITH HER DAUGHTER. I CALLED HER DAUGHTER ROB AND SHE WILL BE HERE AT THE HOSPITAL ABOUT 2PM AND I WILL MEET WITH HER THEN. I AM ALSO CONTACTING [facility] TO SEE IF THEY WILL MEET US AT THE [facility] AT 2 TO MEET WITH PATIENT AND HER DAUGHTER. CM TO FOLLOW AND ASSIST NEEDED. Paper Wood Cutter: Herlinda Zohra DCP- Discharge Planning Updated by [email or web address]: Herlinda العلي on 07/09/20 11:[address] Patient Name: PATT TOVAR Admission Status: Elective Accout number: [id number] Admission Date: 07-01-2020 : 1945 Admission Diagnosis:ACUTE EMBOLISM AND THOMBOS UNSP DEEP VN UNSP LOWER EXTR Attending: RALPH GODINEZ Current LOS: 8 Anticipated DC Date: Planned Disposition: Primary Insurance: MEDICARE A & B Discharge Planning Comments: CM met with patient at bedside after explaining CM role and obtaining verbal consent. CM discussed availability / needs of home health, REHAB and medical equipment. PATIENT UNSURE OF NEEDS AT THIS TIME. WAITING RESULTS OF LIVER BIOPSY. SHE NORMALLY LIVES AT HOME WITH HER DAUGHTER. MAY NEED HH OR REHAB AT TIME OF DC. CM WILL FOLLOW AND ASSIST NEEDED. Paper Wood Cutter: Herlinda Zohra DCPIA - Discharge Planning Initial Assessment Updated by [id number]: Herlinda العلي on 07/09/20 12:29 pm * Is the patient Alert and Oriented? Yes * Preadmission Environment Home with Family * ADLs Independent * Other Equipment CANE, WALKER * List name and contact numbers for known caregivers / representatives who currently or will assist patient after discharge: DAUGHTER * Community resources currently utilized None * Additional services required to return to the preadmission environment? No * Can the patient safely return to the preadmission environment? Yes * Has this patient been hospitalized within the prior 30 days at any hospital? No Last DP export: 07/15/20 3:31 pm Patient Name: PATT TOVAR Page [phone] at 1444 All edits/amendments must be made on the electronic document DICTATION DATE: 07/16/20 144 SENIOR CONSTRUCTION PROJECT MANAGER: OSMANY 07/16/20 1443 RPT#: [id number] DC DATE: STATUS: ADM IN [facility] [address] [place] [address] END OF REPORT
[2020-07-16 17:49] VITALS: BP 133/61
--- NOTE | 2020-07-16 19:10 | NUR ---
RECEIVED REPORT, ASSUMED CARE, DENIES PAIN, BREATHING EVEN UNLABRORED, CALL LIGHT IN REACH, BED LOWEST POSITION, NO S/S OF DISTRESS NOTED, NO IV AT THIS TIME, BHATIA TO GRAVTY
[2020-07-17 04:00] VITALS: BP 105/57; BP 113/52
--- NOTE | 2020-07-17 04:16 | NUR ---
I have reviewed this patient and I concur with the Shift Assessment completed by the Licensed Practical Nurse today this shift.
[2020-07-17 07:30] LABS: BASOPHILS 0.4 % (0-2); EOSINOPHILS 2.4 % (0-7); HEMATOCRIT 30.7 % (36.0-48.0); HEMOGLOBIN 8.8 g/dL (12-16); IMMATURE GRANULOCYTES 0.2 % (0-5); LYMPHOCYTES 11.9 % (15-50); MCH 24.3 pg (26.0-34.0); MCHC 28.7 g/dL (31.0-37.0); MCV 84.8 fL (80.0-100.0); MEAN PLATELET VOLUME 9.9 fL (7.4-10.4); MONOCYTES 7.5 % (2-11); NEUTROPHILS 77.6 % (40-80); PLATELET COUNT 420 10x3/uL (130-400); RBC 3.62 10x6/uL (4.00-5.40); WBC 12.1 10x3/uL (4.8-10.8)
[2020-07-17 07:56] LABS: ALBUMIN 2.2 g/dL (3.4-5.0); ANION GAP 12.8 mmol/L (8-16); BILIRUBIN - TOTAL 0.28 mg/dL (0.2-1.3); CALCIUM 8.9 mg/dL (8.5-10.1); CARBON DIOXIDE 26.4 mmol/L (21.0-32.0); CREATININE - SERUM 0.8 mg/dL (0.6-1.3); POTASSIUM - SERUM 4.2 mmol/L (3.5-5.1); PROTEIN - SERUM 6.8 g/dL (6.4-8.2)
[2020-07-17 10:00] VITALS: BP 104/46
--- NOTE | 2020-07-17 10:59 | NUR ---
ASSESSMENT PER FLOW SHEET. PATIENT IS WITHOUT DISTRESS. ASSIST WITH BEDPAN. FALL PREVENTION IN PLAE WITH BANG MAT.CALL LIGHT IN REACH
[2020-07-17 12:42] VITALS: BP 120/67
[2020-07-17 17:39] VITALS: BP 105/44
--- NOTE | 2020-07-17 18:39 | NUR ---
REMAINS WITHOUT NEEDS,WITHOUT CHANGE. CONT PLAN OF CARE
--- NOTE | 2020-07-17 19:48 | NUR ---
RECEIVED REPORT, ASSUMED CARE, C/O PAIN, BREATHING EVEN UNLABRORED, CALL LIGHT IN REACH, BED LOWEST POSITION, NO S/S OF DISTRESS NOTED, IV PATENT, PAIN MED GIVEN PER EMAR, BHATIA TO GRAVITY
[2020-07-17 20:00] VITALS: BP 106/41
--- NOTE | 2020-07-17 22:14 | NUR ---
OT NOTE: PT COMPLETED SUPINE TO SIT WITH MOD A. PT COMPLETED SIT TOSUPINE WITH MIN A. PT COMPLETED HAIR GROOMING WITH MIN A. [phone] THANK YOU,CARLYLE GUERRERO
[2020-07-18] VITALS: BP 126/66
--- NOTE | 2020-07-18 03:11 | NUR ---
I have reviewed this patient and I concur with the Shift Assessment completed by the Licensed Practical Nurse today this shift.
[2020-07-18 04:00] VITALS: BP 122/49
--- NOTE | 2020-07-18 08:33 | NUR ---
SPOKE WITH BRITTANY IN PHARMACY. SHE WILL BRING AM LENNIE DOSE
--- NOTE | 2020-07-18 08:34 | NUR ---
ASSESSMENT PER FLOW SHEET. PATIENT IS WITHOUT DISTRESS.FALL PREVENTION IN PLACE WITH BANG. DOOR OPEN
[2020-07-18 08:55] LABS: BASOPHILS 0.2 % (0-2); EOSINOPHILS 2.5 % (0-7); HEMATOCRIT 28.4 % (36.0-48.0); HEMOGLOBIN 8.3 g/dL (12-16); IMMATURE GRANULOCYTES 0.2 % (0-5); MCH 24.9 pg (26.0-34.0); MCHC 29.2 g/dL (31.0-37.0); NEUTROPHILS 77.1 % (40-80); RBC 3.34 10x6/uL (4.00-5.40); RDW 23.2 % (11.5-14.5); WBC 11.2 10x3/uL (4.8-10.8)
[2020-07-18 09:00] LABS: PLATELET COUNT 548 10x3/uL (130-400)
[2020-07-18 09:15] LABS: ALBUMIN 2.2 g/dL (3.4-5.0); ALKALINE PHOSPHATASE 163 U/L (30-120); ALT (SGPT) 29 U/L (10-68); BILIRUBIN - TOTAL 0.32 mg/dL (0.2-1.3); CALC OSMOLALITY 281 mosm/kg (275-300); CALCIUM 8.6 mg/dL (8.5-10.1); CARBON DIOXIDE 28.6 mmol/L (21.0-32.0); CHLORIDE - SERUM 102 mmol/L (98-107); CREATININE - SERUM 0.7 mg/dL (0.6-1.3); POTASSIUM - SERUM 3.6 mmol/L (3.5-5.1); PROTEIN - SERUM 6.6 g/dL (6.4-8.2); SODIUM 139 mmol/L (136-145); UREA NITROGEN 12 mg/dL (7-18); eGFR NON AFRICAN AMERICAN 87 mL/min (90-120)
[2020-07-18 09:17] VITALS: BP 119/46
[2020-07-18 09:18] LABS: GLUCOSE 173 mg/dL (74-106)
--- NOTE | 2020-07-18 19:09 | NUR ---
RECEIVED REPORT, ASSUMED CARE, DENIES PAIN, BREATHING EVEN UNLABRORED, CALL LIGHT IN REACH, BED LOWEST POSITION, NO S/S OF DISTRESS NOTED, DENIES NEEDS BHATIA TO GRAVITY
[2020-07-18 20:00] VITALS: BP 125/54
[2020-07-19 04:00] VITALS: BP 120/50
--- NOTE | 2020-07-19 08:15 | NUR ---
PATIENT IN BED WITH IV INTACT. NO COMPLAINTS OR SIGNS OF DISTRESS. IV INTACT. CALL LIGHT WITHIN REACH.
[2020-07-19 09:27] VITALS: BP 116/52
--- NOTE | 2020-07-19 15:28 | NUR ---
PATIENT SITTING UP IN CHAIR. BED ALARM ON. CALL LIGHT WITHIN REACH.
--- NOTE | 2020-07-19 15:30 | NUR ---
PATIENT IN BED LAYING ON SIDE WITH IV INTACT. NO COMPLAINTS OR SIGNS OF DISTRESS. CALL LIGHT WITHIN REACH.
[2020-07-19 17:48] VITALS: BP 103/50
--- NOTE | 2020-07-19 18:38 | NUR ---
PATIENT IN BED WITH IV INTACT. NO COMPLAINTS OR SIGNS OF DISTRESS. DRESSING CHANGED WITH DAKINS ORDERED. TOLERATED WITH SMALL AMOUNT OF PAIN. CALL LIGHT WITHIN REACH.
--- NOTE | 2020-07-19 18:52 | NUR ---
OT NOTE: PT COMPLETED SUPINE TO SIT WITH MOD A. PT COMPLETED EOB SITTING WITH CGA. PT COMPLETED BUE AROM EXS TOLERATED AT EOB. PT REQUIRED CUES FOR INCREASED PARTICIPATION. [phone] THANK YOU,CARLYLE GUERRERO
--- NOTE | 2020-07-19 20:00 | NUR ---
PT LYING IN BED WITHOUT DISTRESS, AOX3. DENIES PAIN OR NEEDS. CL IN REACH, WILL CTM
[2020-07-19 20:28] VITALS: BP 104/50
[2020-07-20 00:24] VITALS: BP 126/55
--- NOTE | 2020-07-20 01:30 | NUR ---
PT LYING IN BED SLEEPING WITHOUT DISTRESS, WILL CTM
[2020-07-20 04:51] VITALS: BP 133/55
--- NOTE | 2020-07-20 07:32 | NUR ---
ALERT AND ORIENTED. LUNGS CLEAR BILATERALLY. HEART SOUNDS S1 AND S2 HEARD IN ALL BARBER. BOWEL SOUNDS ACTIVE X 4. DENIES NEEDS. BED LOW. CALL BARRIOS AND PERSONAL ITEMS IN REACH. WILL CONTINUE TO MONITOR.
[2020-07-20 08:41] VITALS: BP 104/69
--- NOTE | 2020-07-20 11:52 | NUR ---
RESTING IN BED. DENIES NEEDS. WILL CONTINUE TO MONITOR.
[2020-07-20] MEDS ORDERED: ELIQUIS5 MG PO (12:17)
--- NOTE | 2020-07-20 12:48 | MORECARE ---
CASE MANAGEMENT DISCHARGE SUMMARY PATIENT: PATT TOVAR UNIT: [id number] ADM DATE: 07/01/20 AGE: 75 : 46 SEX: F ROOM/BED: D.2223 AUTHOR: ELISADOC PHYSICIAN: REFERRING PHYSICIAN: RALPH GODINEZ MD DATE OF SERVICE: 07/20/20 Discharge Plan Patient Name: PATT TOVAR Facility: [facility]:[place] : 1945 Planned Disposition: Home with Hospice Anticipated Discharge Date: Discharge Date: Expected LOS: Initial Reviewer: [id number] Initial Review Date: 07/01/2020 Generated: 07/20/20 1:47 pm Comments DCP- Discharge Planning Updated by [id number]: Herlinda العلي on 07/20/20 11:[address] Patient Name: PATT TOVAR Admission Status: Elective Accout number: [id number] Admission Date: 07-01-2020 : 1945 Admission Diagnosis:ACUTE EMBOLISM AND THOMBOS UNSP DEEP VN UNSP LOWER EXTR Attending: RALPH GODINEZ Current LOS: 19 Anticipated DC Date: Planned Disposition: Home with Hospice Primary Insurance: MEDICARE A & B Discharge Planning Comments: SPOKE WITH SUMIT AT [facility] [phone], EQUIPMENT IS BEING SET UP AT THE HOME. WAITING CALL BACK FROM [facility] WHEN EQUIPMENT IS READY. DC ORDER IS IN. Drying Oven Attendant: Herlinda العلي DCP- Discharge Planning Updated by [id number]: Herlinda العلي on 07/16/20 1:[address] Patient Name: PATT TOVAR Admission Status: Elective Accout number: [id number] Admission Date: 07-01-2020 : 1945 Admission Diagnosis:ACUTE EMBOLISM AND THOMBOS UNSP DEEP VN UNSP LOWER EXTR Attending: RALPH GODINEZ Current LOS: 15 Anticipated DC Date: Planned Disposition: Home with Hospice Primary Insurance: MEDICARE A & B Discharge Planning Comments: MET WITH PATIENT'S DAUGHTER TODAY. SHE WILL NOT HAVE THE HOME READY TO BRING HER MOM HOME UNTIL AFTER THE WEEKEND. PLAN IS FOR DAUGHTER TO HAVE HOME READY FOR HOSPICE TO BRING IN EQUIPMENT SUNDAY AND THEN PATIENT CAN DC TO HOME WITH HER. CM TO FOLLOW AND ASSIST NEEDED. [place] [facility] WORKING WITH FAMILY. Drying Oven Attendant: Herlinda العلي DCP- Discharge Planning Updated by [id number]: Herlinda العلي on 07/15/20 3:[address] Patient Name: PATT TOVAR Admission Status: Elective Accout number: [id number] Admission Date: 07-01-2020 : 1945 Admission Diagnosis:ACUTE EMBOLISM AND THOMBOS UNSP DEEP VN UNSP LOWER EXTR Attending: RALPH GODINEZ Current LOS: 14 Anticipated DC Date: Planned Disposition: Home with Hospice Primary Insurance: MEDICARE A & B Discharge Planning Comments: CM SPOKE WITH PATIENT ABOUT HOSPICE, PATIENT WANTS TO GO HOME WITH HOSPICE AND REQUESTED I SPEAK WITH HER DAUGHTER. I CALLED HER DAUGHTER ROB AND SHE WILL BE HERE AT THE HOSPITAL ABOUT 2PM AND I WILL MEET WITH HER THEN. I AM ALSO CONTACTING [facility] TO SEE IF THEY WILL MEET US AT THE HOSPITAL AT 2 TO MEET WITH PATIENT AND HER DAUGHTER. CM TO FOLLOW AND ASSIST NEEDED. Drying Oven Attendant: Herlinda العلي [facility]- Discharge Planning Updated by [id number]: Herlinda العلي on 07/09/20 11:[address] Patient Name: PATT TOVAR Admission Status: Elective Accout number: [id number] Admission Date: 07-01-2020 : 1945 Admission Diagnosis:ACUTE EMBOLISM AND THOMBOS UNSP DEEP VN UNSP LOWER EXTR Attending: RALPH GODINEZ Current LOS: 8 Anticipated DC Date: Planned Disposition: Primary Insurance: MEDICARE A & B Discharge Planning Comments: CM met with patient at bedside after explaining CM role and obtaining verbal consent. CM discussed availability / needs of home health, REHAB and medical equipment. PATIENT UNSURE OF NEEDS AT THIS TIME. WAITING RESULTS OF LIVER BIOPSY. SHE NORMALLY LIVES AT HOME WITH HER DAUGHTER. MAY NEED HH OR REHAB AT TIME OF DC. CM WILL FOLLOW AND ASSIST NEEDED. Drying Oven Attendant: Herlinda العلي [facility] - Discharge Planning Initial Assessment Updated by [id number]: Herlinda العلي on 07/09/20 12:29 pm * Is the patient Alert and Oriented? Yes * Preadmission Environment Home with Family * ADLs Independent * Other Equipment CANE, WALKER * List name and contact numbers for known caregivers / representatives who currently or will assist patient after discharge: DAUGHTER * Community resources currently utilized None * Additional services required to return to the preadmission environment? No * Can the patient safely return to the preadmission environment? Yes * Has this patient been hospitalized within the prior 30 days at any hospital? No Last DP export: 07/16/20 1:44 pm Patient Name: PATT TOVAR Page [phone] at 1248 All edits/amendments must be made on the electronic document DICTATION DATE: 07/20/201246 DIRECTOR FRAUD: OSMANY 07/20/20 1247 RPT#: [id number] DC DATE: STATUS: ADM IN [facility] [address] [place] [address] END OF REPORT
[2020-07-20 13:12] VITALS: BP 123/47
--- NOTE | 2020-07-20 16:52 | NUR ---
DISCHARGE EDUCATION PROVIDED BOTH WRITTEN AND VERBAL. VERBALIZED UNDERSTANDING. DENIES FURTHER QUESTIONS. NO IV TO REMOVE. SPOKE WITH PATIENT'S DAUGHTER SHELLEY ABOUT DISCHARGE. DENIES FURTHER QUESTIONS. ATTEMPTED TO CALL REPORT TO [facility]. STATES NURSE WILL CALL BACK.
--- NOTE | 2020-07-20 16:56 | MORECARE ---
CASE MANAGEMENT DISCHARGE SUMMARY PATIENT: PATT TOVAR UNIT: [id number] ADM DATE: 07/01/20 AGE: 75 : 46 SEX: F ROOM/BED: D.2223 AUTHOR: ELISA,DOC PHYSICIAN: REFERRING PHYSICIAN: RALPH GODINEZ MD DATE OF SERVICE: 07/20/20 Discharge Plan Patient Name: PATT TOVAR Facility: [facility]:[place] : 1945 Planned Disposition: Home with Hospice Anticipated Discharge Date: Discharge Date: Expected LOS: Initial Reviewer: [id number] Initial Review Date: 07/01/2020 Generated: 07/20/20 5:55 pm Comments DCP- Discharge Planning Updated by [id number]: Herlinda العلي on 07/20/20 3:[address] Patient Name: PATT TOVAR Admission Status: Elective Accout number: [id number] Admission Date: 07-01-2020 : 1945 Admission Diagnosis:ACUTE EMBOLISM AND THOMBOS UNSP DEEP VN UNSP LOWER EXTR Attending: RALPH GODINEZ Current LOS: 19 Anticipated DC Date: Planned Disposition: Home with Hospice Primary Insurance: MEDICARE A & B Discharge Planning Comments: CM SPOKE WITH ROB, PATIENT DAUGHTER, EMS WILL TRANSPORT PATIENT TO HOME WITH [place] [facility]. RN NOTIFIED HOSPICE NURSE. IMM EXPLAINED TO DAUGHTER BECAUSE PATIENT IS UNABLE TO SIGN. COPY WILL BE MAILED TO DAUGHTER. EMS CALLED, ETA TODAY. Atomic Process Engineer: Herlinda العلي DCP- Discharge Planning Updated by [id number]: Herlinda العلي on 07/20/20 11:[address] Patient Name: PATT TOVAR Admission Status: Elective Accout number: [id number] Admission Date: 07-01-2020 : 1945 Admission Diagnosis:ACUTE EMBOLISM AND THOMBOS UNSP DEEP VN UNSP LOWER EXTR Attending: RALPH GODINEZ Current LOS: 19 Anticipated DC Date: Planned Disposition: Home with Hospice Primary Insurance: MEDICARE A & B Discharge Planning Comments: SPOKE WITH SUMIT AT [facility] [phone], EQUIPMENT IS BEING SET UP AT THE HOME. WAITING CALL BACK FROM [place] [facility] WHEN EQUIPMENT IS READY. DC ORDER IS IN. Atomic Process Engineer: Herlinda العلي DCP- Discharge Planning Updated by [id number]: Herlinda Zohra on 07/16/20 1:[address] Patient Name: PATT TOVAR Admission Status: Elective Accout number: [id number] Admission Date: 07-01-2020 : 1945 Admission Diagnosis:ACUTE EMBOLISM AND THOMBOS UNSP DEEP VN UNSP LOWER EXTR Attending: RALPH GODINEZ Current LOS: 15 Anticipated DC Date: Planned Disposition: Home with Hospice Primary Insurance: MEDICARE A & B Discharge Planning Comments: MET WITH PATIENT'S DAUGHTER TODAY. SHE WILL NOT HAVE THE HOME READY TO BRING HER MOM HOME UNTIL AFTER THE WEEKEND. PLAN IS FOR DAUGHTER TO HAVE HOME READY FOR HOSPICE TO BRING IN EQUIPMENT SUNDAY AND THEN PATIENT CAN DC TO HOME WITH HER. CM TO FOLLOW AND ASSIST NEEDED. [place] [facility]. Atomic Process Engineer: Herlinda Zohra DCP- Discharge Planning Updated by [id number]: Herlinda Zohra on 07/15/20 3:[address] Patient Name: PATT TOVAR Admission Status: Elective Accout number: [id number] Admission Date: 07-01-2020 : 1945 Admission Diagnosis:ACUTE EMBOLISM AND THOMBOS UNSP DEEP VN UNSP LOWER EXTR Attending: RALPH GODINEZ Current LOS: 14 Anticipated DC Date: Planned Disposition: Home with Hospice Primary Insurance: MEDICARE A & B Discharge Planning Comments: CM SPOKE WITH PATIENT ABOUT HOSPICE, PATIENT WANTS TO GO HOME WITH HOSPICE AND REQUESTED I SPEAK WITH HER DAUGHTER. I CALLED HER DAUGHTER ROB AND SHE WILL BE HERE AT THE HOSPITAL ABOUT 2PM AND I WILL MEET WITH HER THEN. I AM ALSO CONTACTING [facility] TO SEE IF THEY WILL MEET US AT THE [facility] AT 2 TO MEET WITH PATIENT AND HER DAUGHTER. CM TO FOLLOW AND ASSIST NEEDED. Atomic Process Engineer: Herlinda Zohra DCP- Discharge Planning Updated by [id number]: Herlinda Zohra on 07/09/20 11:[address] Patient Name: PATT TOVAR Admission Status: Elective Accout number: [id number] Admission Date: 07-01-2020 : 1945 Admission Diagnosis:ACUTE EMBOLISM AND THOMBOS UNSP DEEP VN UNSP LOWER EXTR Attending: RALPH GODINEZ Current LOS: 8 Anticipated DC Date: Planned Disposition: Primary Insurance: MEDICARE A & B Discharge Planning Comments: CM met with patient at bedside after explaining CM role and obtaining verbal consent. CM discussed availability / needs of home health, REHAB and medical equipment. PATIENT UNSURE OF NEEDS AT THIS TIME. WAITING RESULTS OF LIVER BIOPSY. SHE NORMALLY LIVES AT HOME WITH HER DAUGHTER. MAY NEED HH OR REHAB AT TIME OF DC. CM WILL FOLLOW AND ASSIST NEEDED. Atomic Process Engineer: Herlinda العلي DCPIA - Discharge Planning Initial Assessment Updated by [id number]: Herlinda العلي on 07/09/20 12:29 pm * Is the patient Alert and Oriented? Yes * Preadmission Environment Home with Family * ADLs Independent * Other Equipment CANE, WALKER * List name and contact numbers for known caregivers / representatives who currently or will assist patient after discharge: DAUGHTER * Community resources currently utilized None * Additional services required to return to the preadmission environment? No * Can the patient safely return to the preadmission environment? Yes * Has this patient been hospitalized within the prior 30 days at any hospital? No Coverage Notice Reviewer: [id number] - Herlinda العلي Notice Issued Date-Time: 07/20/2020 16:50 Notice Type: IM Discharge Notice Notice Delivered To: Family Member Relationship to Patient: Daughter Assistant Customer Service Manager Name: ROB LOPEZ Delivery Method: PHONE - Phone Roberta Days: Prior Verbal Notification: Recipient Understood Notice: Yes Recipient Signature: Eyal Perez Note Co-signed by Attending: Coverage Notice Comment: WE WILL MAIL CERTIFIED COPY TO JAMILAH IVEY export: 07/20/20 11:48 am Patient Name: PATT TOVAR Page 76426 at 1656 All edits/amendments must be made on the electronic document DICTATION DATE: 07/20/201654 SENIOR CONTROLLER: OSMANY 07/20/201654 RPT#: [id number] DC DATE: STATUS: ADM IN [facility] [address] [place] [address] END OF REPORT
--- NOTE | 2020-07-21 08:40 | MORECARE ---
CASE MANAGEMENT DISCHARGE SUMMARY PATIENT: PATT TOVAR UNIT: [id number] ADM DATE: 07/01/20 AGE: 75 : 46 SEX: F ROOM/BED: D.2223 AUTHOR: ELISA,DOC PHYSICIAN: REFERRING PHYSICIAN: RALPH GODINEZ MD DATE OF SERVICE: 07/21/20 Discharge Plan Patient Name: PATT TOVAR Facility: [facility]:[place] : 1945 Planned Disposition: Home with Hospice Anticipated Discharge Date: Discharge Date: 07/20/2020 Expected LOS: Initial Reviewer: [id number] Initial Review Date: 07/01/2020 Generated: 07/21/20 9:40 am Comments DCP- Discharge Planning Updated by [email or web address]: Herlinda العلي on 07/20/20 3:[address] Patient Name: PATT TOVAR Admission Status: Elective Accout number: [id number] Admission Date: 07-01-2020 : 1945 Admission Diagnosis:ACUTE EMBOLISM AND THOMBOS UNSP DEEP VN UNSP LOWER EXTR Attending: RALPH GODINEZ Current LOS: 19 Anticipated DC Date: Planned Disposition: Home with Hospice Primary Insurance: MEDICARE A & B Discharge Planning Comments: CM SPOKE WITH ROB, PATIENT DAUGHTER, EMS WILL TRANSPORT PATIENT TO HOME WITH [place] [facility]. RN NOTIFIED HOSPICE NURSE. IMM EXPLAINED TO DAUGHTER BECAUSE PATIENT IS UNABLE TO SIGN. COPY WILL BE MAILED TO DAUGHTER. EMS CALLED, ETA TODAY. Real Estate Officer: Herlinda العلي DCP- Discharge Planning Updated by [id number]: Herlinda العلي on 07/20/20 11:[address] Patient Name: PATT TOVAR Admission Status: Elective Accout number: [id number] Admission Date: 07-01-2020 : 1945 Admission Diagnosis:ACUTE EMBOLISM AND THOMBOS UNSP DEEP VN UNSP LOWER EXTR Attending: RALPH GODINEZ Current LOS: 19 Anticipated DC Date: Planned Disposition: Home with Hospice Primary Insurance: MEDICARE A & B Discharge Planning Comments: SPOKE WITH SUMIT AT [facility] [phone], EQUIPMENT IS BEING SET UP AT THE HOME. WAITING CALL BACK FROM [place] [facility] WHEN EQUIPMENT IS READY. DC ORDER IS IN. Real Estate Officer: Herlinda العلي DCP- Discharge Planning Updated by [id number]: Herlinda العلي on 07/16/20 1:[address] Patient Name: PATT TOVAR Admission Status: Elective Accout number: [id number] Admission Date: 07-01-2020 : 1945 Admission Diagnosis:ACUTE EMBOLISM AND THOMBOS UNSP DEEP VN UNSP LOWER EXTR Attending: RALPH GODINEZ Current LOS: 15 Anticipated DC Date: Planned Disposition: Home with Hospice Primary Insurance: MEDICARE A & B Discharge Planning Comments: MET WITH PATIENT'S DAUGHTER TODAY. SHE WILL NOT HAVE THE HOME READY TO BRING HER MOM HOME UNTIL AFTER THE WEEKEND. PLAN IS FOR DAUGHTER TO HAVE HOME READY FOR HOSPICE TO BRING IN EQUIPMENT SUNDAY AND THEN PATIENT CAN DC TO HOME WITH HER. CM TO FOLLOW AND ASSIST NEEDED. [place] [facility]. Real Estate Officer: Herlinda العلي DCP- Discharge Planning Updated by [id number]: Herlinda Zohra on 07/15/20 3:[address] Patient Name: PATT TOVAR Admission Status: Elective Accout number: [id number] Admission Date: 07-01-2020 : 1945 Admission Diagnosis:ACUTE EMBOLISM AND THOMBOS UNSP DEEP VN UNSP LOWER EXTR Attending: RALPH GODINEZ Current LOS: 14 Anticipated DC Date: Planned Disposition: Home with Hospice Primary Insurance: MEDICARE A & B Discharge Planning Comments: CM SPOKE WITH PATIENT ABOUT HOSPICE, PATIENT WANTS TO GO HOME WITH HOSPICE AND REQUESTED I SPEAK WITH HER DAUGHTER. I CALLED HER DAUGHTER ROB AND SHE WILL BE HERE AT THE HOSPITAL ABOUT 2PM AND I WILL MEET WITH HER THEN. I AM ALSO CONTACTING [facility] TO SEE IF THEY WILL MEET US AT THE [facility] AT 2 TO MEET WITH PATIENT AND HER DAUGHTER. CM TO FOLLOW AND ASSIST NEEDED. Real Estate Officer: Herlinda العلي DCP- Discharge Planning Updated by [id number]: Herlinda Zohra on 07/09/20 11:[address] Patient Name: PATT TOVAR Admission Status: Elective Accout number: [id number] Admission Date: 07-01-2020 : 1945 Admission Diagnosis:ACUTE EMBOLISM AND THOMBOS UNSP DEEP VN UNSP LOWER EXTR Attending: RALPH GODINEZ Current LOS: 8 Anticipated DC Date: Planned Disposition: Primary Insurance: MEDICARE A & B Discharge Planning Comments: CM met with patient at bedside after explaining CM role and obtaining verbal consent. CM discussed availability / needs of home health, REHAB and medical equipment. PATIENT UNSURE OF NEEDS AT THIS TIME. WAITING RESULTS OF LIVER BIOPSY. SHE NORMALLY LIVES AT HOME WITH HER DAUGHTER. MAY NEED HH OR REHAB AT TIME OF DC. CM WILL FOLLOW AND ASSIST NEEDED. Real Estate Officer: Herlinda العلي DCPIA - Discharge Planning Initial Assessment Updated by [email or web address]: Herlinda العلي on 07/09/20 12:29 pm * Is the patient Alert and Oriented? Yes * Preadmission Environment Home with Family * ADLs Independent * Other Equipment CANE, WALKER * List name and contact numbers for known caregivers / representatives who currently or will assist patient after discharge: DAUGHTER * Community resources currently utilized None * Additional services required to return to the preadmission environment? No * Can the patient safely return to the preadmission environment? Yes * Has this patient been hospitalized within the prior 30 days at any hospital? No Coverage Notice Reviewer: [id number] - Herlinda العلي Notice Issued Date-Time: 07/20/2020 16:50 Notice Type: IM Discharge Notice Notice Delivered To: Family Member Relationship to Patient: Daughter Oracle Drm Consultant Name: ROB LOPEZ Delivery Method: PHONE - Phone Roberta Days: Prior Verbal Notification: Recipient Understood Notice: Yes Recipient Signature: Eyal Perez Note Co-signed by Attending: Coverage Notice Comment: WE WILL MAIL CERTIFIED COPY TO JAMILAH IVEY export: 07/20/20 3:55 pm Patient Name: PATT TOVAR Page [phone] at 0840 All edits/amendments must be made on the electronic document DICTATION DATE: 07/21/20839 DOT NET DEVELOPER: OSMANY 07/21/20839 RPT#: [id number] DC DATE:07/20/20 STATUS: DIS IN [facility] [address] [place] [address] END OF REPORT
== END 2020-07-20 19:26 | disposition home health service (06) | DRG 270 ==
LOC: D.MS 15:04
PROVIDERS: Emergency Medicine; Family Medicine; Family Medicine Adult Medicine; General Practice; Internal Medicine Hematology & Oncology; Internal Medicine Pulmonary Disease; Radiology Diagnostic Radiology; ADMIT Family Medicine; ATTEND Family Medicine
PROC: 06CD3ZZ Extirpation of Matter from Left Common Iliac Vein, Percutaneous Approach (ICD-10-PCS; principal; 2020-07-02 12:50)
PROC: 0FB13ZX Excision of Right Lobe Liver, Percutaneous Approach, Diagnostic (ICD-10-PCS; 2020-07-08)
DX: I82.409 Acute embolism and thrombosis of unspecified deep veins of unspecified lower extremity (principal); I26.09 Other pulmonary embolism with acute cor pulmonale; J96.01 Acute respiratory failure with hypoxia; Z68.41 Body mass index [BMI] 40.0-44.9, adult; E11.65 Type 2 diabetes mellitus with hyperglycemia; D64.9 Anemia, unspecified; D72.829 Elevated white blood cell count, unspecified; I10 Essential (primary) hypertension; E55.9 Vitamin D deficiency, unspecified; E78.5 Hyperlipidemia, unspecified; R16.0 Hepatomegaly, not elsewhere classified; E66.01 Morbid (severe) obesity due to excess calories; Z66 Do not resuscitate; Z72.0 Tobacco use